=== PATIENT | male | born 1955 | race African-American/Black ===

== ENCOUNTER 2017-03-29 14:22 | Inpatient (IN) | payer MEDICAID ==
[~2017-03-29] VITALS: Ht 188 cm; Wt 93.0 kg
[2017-03-29 14:22] VITALS: BP_SYST 137
--- NOTE | 2017-03-29 14:22 | NUR ---
BROUGHT IN BY S AMBULANCE FROM [facility] AND PLACED IN BED #4, TRIAGED. REPORT GIVEN TO MARTIN
[2017-03-29] MEDS ORDERED: MORPHINE 4 MG/ML INJ. SYRINGE IVP ONE (14:30)
[2017-03-29] MEDS ORDERED: LIDOCAINE/EPI 1% 1:100000 20 ML VIAL INJ ONE (14:30)
[2017-03-29] MEDS ORDERED: NACL 0.9% 1,000 ML IV SCH (14:30)
[2017-03-29] MEDS ORDERED: ONDANSETRON HCL 4 MG/2 ML VIAL IVP ONE (14:30)
[2017-03-29] MEDS ORDERED: PIPERACILLIN/TAZO 3.38 GM in D5W 50 ML IV ONE (14:30)
--- NOTE | 2017-03-29 14:36 | NUR ---
ER at bedside examining patient.
--- NOTE | 2017-03-29 14:37 | NUR ---
Pt went to x ray in stable condition.
--- NOTE | 2017-03-29 15:20 | NUR ---
Pt is resting comfortably with no noted distress or discomfort
[2017-03-29 15:25] LABS: HEMATOCRIT 26.3 % (36-54); HEMOGLOBIN 8.4 g/dL (14.0-18.0); MEAN CORPUSCULAR HEMOGLOBIN 27 pg (27-31); MEAN CORPUSCULAR HGB CONC 32 % (32-36); MEAN CORPUSCULAR VOLUME 84 fL (79.0-98.0); PLATELET COUNT (AUTO) 568 K/uL (130-430); RED BLOOD CELL COUNT(AUTO) 3.14 MIL/uL (4.2-6.2); RED CELL DISTRIBUTION WIDTH 17.5 % (9.0-15.0); WHITE BLOOD COUNT (AUTO) 14.8 K/uL (4.8-10.8)
[2017-03-29 15:36] LABS: CALCIUM 12.2 mg/dL (8.4-11.0); CREATININE 1.91 mg/dL (0.55-1.30); INR 1.2 (0.80-1.20); POTASSIUM 4.1 mmol/L (3.5-5.1); PROTHROMBIN TIME 13.1 SECS (9.5-12.5)
[2017-03-29 15:52] LABS: ALBUMIN 2.3 g/dL (3.4-4.8); TOTAL BILIRUBIN 0.9 mg/dL (0.0-1.0); TOTAL PROTEIN, SERUM 9.4 g/dL (6.4-8.3); URIC ACID 5.6 mg/dL (2.4-7.0)
[2017-03-29] MEDS ORDERED: MORPHINE 4 MG/ML INJ. SYRINGE ONE (16:08)
[2017-03-29] MEDS ORDERED: DIPH-179 PO (16:10)
[2017-03-29] MEDS ORDERED: DILT60TA3 PO (16:10)
[2017-03-29] MEDS ORDERED: HYDR-2489 PO (16:10)
[2017-03-29] MEDS ORDERED: POTA20TA83 PO (16:10)
[2017-03-29] MEDS ORDERED: OXYC15TA88 PO (16:10)
[2017-03-29] MEDS ORDERED: ACET-2165 PO (16:10)
[2017-03-29] MEDS ORDERED: MAGN400O4 PO (16:10)
[2017-03-29] MEDS ORDERED: ALLO300T2 PO (16:10)
[2017-03-29] MEDS ORDERED: APIX5TAB PO (16:10)
[2017-03-29] MEDS ORDERED: FURO-149 PO (16:10)
[2017-03-29] MEDS ORDERED: FAMO20TA98 PO (16:10)
[2017-03-29] MEDS ORDERED: METO25TA6 PO (16:10)
[2017-03-29] MEDS ORDERED: ASPI-1063 PO (16:10)
[2017-03-29] MEDS ORDERED: DIGO125T79 PO (16:10)
[2017-03-29] MEDS ORDERED: LACTIN PO (16:10)
[2017-03-29 16:20] LABS: ATYPICAL LYMPHOCYTES % 0 % (0-0); BAND % (MANUAL) 1 % (0-6); BASOPHILS % (MANUAL) 0 % (0-2); EOSINOPHILS % (MANUAL) 3 % (0-7); LYMPHOCYTES % (MANUAL) 45 % (20-46); MONOCYTES % (MANUAL) 3 % (0-11)
[2017-03-29 16:39] VITALS: BP_SYST 126
--- NOTE | 2017-03-29 16:39 | NUR ---
ADMISSION: The patient, MEGHAN ESTEVES, 61 y/o, M admitted by NEPTALI MALONE DO, was given written information regarding hospital policies, unit procedures and contact persons.
--- NOTE | 2017-03-29 16:50 | NUR ---
Patient will be admitted to care of Dr Lisa. Admitted to med surg unit. Will go to room 114B. Belongings list completed. Summary report printed. Report will be given at bedside.
[2017-03-29] MEDS ORDERED: VANCOMYCIN HCL 1 GM/NS PREMIX 250 ML IV SCH (17:30)
--- NOTE | 2017-03-29 17:30 | NUR ---
CONSULTS ID CONSULT Spoke with Bam regarding request for consultation with Dr. Lemon ([phone]) for reason: sepsis. Dr. Orozco is currently welder setter electron beam machine. ORTHO CONSULT Spoke with Dr. Maria G brown regarding consult for reason: sepsis. Dr. Meyer is welder setter electron beam machine and transferred call to FELICITY Boland.
--- NOTE | 2017-03-29 17:30 | NUR ---
md seen by dr allred and told charge nurse does not see medical patient. dr luna was called and informed re th issue and stated will informed dr oh in am. will endorsed to night charged nurse about it.
--- NOTE | 2017-03-29 18:00 | NUR ---
rounds/initial notes report given by shannan jean nurse. awake alert but with periods of forgetfulness/confusion. ivf infusing well on the l hand. no infiltration noted. resp easy unlabored. no sob noted. noted r knee area to be swollen with a band aid oon it. no drainage noted.per patient er md attempted to aspirate but no drain was obtained. voiding using the urinal at bedside. bed in low position and side rails up and locked. call light within reached and instructed to call when needing assistance.
[2017-03-29] MEDS: NACL 0.9% 1,000 ML IV SCH (18:58)
--- NOTE | 2017-03-29 19:00 | NUR ---
closing notes iv abx was given as ordered. no acute distress noted. side rails up and locked and bed in low position.
[2017-03-29 19:45] VITALS: BP_SYST 155
--- NOTE | 2017-03-29 19:45 | NUR ---
initial note pt. received in bed, alert but forgetful. no s/s of sob or distress noted at this time. afebrile. complains of pain only when leg is being moved. right knee swelling noted. pt. does not want pain medication at this time. pt. refuses to be turned to assess condition of skin on his bottom. will attempt at a later time. from what can be seen, there does not appear to be any breakdown. iv acces noted to left hand. no redness or swelling noted to the site. iv antibiotics infusing well at this time as ordered. no adverse reactions are noted. pt. able to use the urinal. plan of care has been discussed, pt. verbalizes understanding. encouraged pt. to use the call light for any assistance. will continue to monitor for any changes. safety and fall precautions are in place, call light in reach. bed alarm on this pt. bed does not work, will move to another bed with a functioning alarm.
[2017-03-29 20:30] LABS: BILIRUBIN,URINE NEGATIVE (NEGATIVE); BLOOD, URINE 3+ (NEGATIVE); CLARITY/URINE SL HAZY (CLEAR); COLOR,URINE YELLOW (YELLOW); GLUCOSE,URINE NEGATIVE (NEGATIVE); KETONES,URINE NEGATIVE (NEGATIVE); LEUKOCYTE ESTERASE ,URINE NEGATIVE (NEGATIVE); NITRITE, URINE NEGATIVE (NEGATIVE); PH,URINE 6.5 (5.0-8.0); PROTEIN URINE 2+ (NEGATIVE); UROBILINOGEN,URINE 0.2 (0.2-1.0)
[2017-03-29 20:48] LABS: BACTERIA,URINE FEW /HPF (None Seen); RBC,URINE >100 /HPF (0-3)
[2017-03-29 20:49] LABS: FINE GRANULAR CASTS,URINE 0-10 /LPF (None Seen); MUCUS,URINE 1+ /LPF (None Seen); URINE AMORPHOUS URATE 1+ /HPF (None Seen)
[2017-03-29] MEDS ORDERED: DOCUSATE SODIUM 100 MG CAPSULE PO PRN (21:00)
[2017-03-29] MEDS ORDERED: POTASSIUM CHLORIDE 10 MEQ TAB.PRT.SR PO PRN (21:00)
[2017-03-29] MEDS ORDERED: ZOLPIDEM TARTRATE 5 MG TABLET PO PRN (21:00)
[2017-03-29] MEDS ORDERED: ONDANSETRON HCL 4 MG/2 ML VIAL IVP PRN (21:00)
[2017-03-29] MEDS ORDERED: LORazepam 2 MG/ML VIAL IVP PRN (21:00)
[2017-03-29] MEDS ORDERED: ACETAMINOPHEN 325 MG TABLET PO PRN (21:00)
[2017-03-29] MEDS ORDERED: MAGNESIUM SULFATE 50 ML IV PRN (21:00)
[2017-03-29] MEDS ORDERED: MORPHINE 2 MG/ML INJ. SYRINGE IVP PRN (21:00)
--- NOTE | 2017-03-29 21:00 | NUR ---
rounds pt. transferred to bed with a functioning alarm. pt stable. will continue to monitor.
[2017-03-29] MEDS: DILTIAZEM HCL 60 MG TABLET PO SCH (22:03)
[2017-03-29] MEDS: METOPROLOL TARTRATE 25 MG TABLET PO SCH (22:03)
--- NOTE | 2017-03-29 22:25 | NUR ---
rounds pt. resting in bed at this time. complains of pain to right knee when leg is assessed or moved. pt. requesting pain medication at this time. will administer as ordered. pm medications were given, no difficulties swallowing noted. pt. refuses to be turned in order to assess the condition of his skin. will continue to monitor the patient for any changes. safety and fall precautions are in place. call light in reach. bed alarm on.
[2017-03-30] VITALS (7 sets, daily range): BP systolic 112–143
--- NOTE | 2017-03-30 00:15 | NUR ---
rounds pt. resting in bed with eyes closed. chest rise and fall noted. no signs of distress. no facial grimacing indicating pain. iv fluids infusing well. will cont. to monitor for changes. safety and fall precautions in place, call light in reach, bed alarm on.
--- NOTE | 2017-03-30 02:14 | NUR ---
rounds pt. resting in bed with eyes closed, chest rise and fall noted. no s/s of sob or distress. no facial grimacing indicating pain. will continue to monitor for changes. safety and fall precautions in place. call light in reach.
--- NOTE | 2017-03-30 04:06 | NUR ---
rounds pt. sitting up in bed, no signs of acute distress noted. denies pain at this time. iv fluids infusing well. will continue to monitor for changes. safety and fall precautions in place. call light in reach.
[2017-03-30] MEDS: DILTIAZEM HCL 60 MG TABLET PO SCH ×3 (05:35→21:06)
--- NOTE | 2017-03-30 06:38 | NUR ---
CLOSING NOTE PT. RESTING IN BED QUIETLY. NO S/S OF SOB OR DISTRESS NOTED. PT. DENIES PAIN. IV FLUIDS CONT. TO INFUSE WELL. SCDS ARE ON BILATERALLY. ALL NECESSARY NEEDS WERE MET THROUGHOUT THE SHIFT, SAFETY AND FALL PRECAUTIONS WERE MAINTAINED. WILL ENDORSE CARE TO AM NURSE. CALL LIGHT IN REACH, BED ALARM ON.
--- NOTE | 2017-03-30 07:57 | NUR ---
Nutrition Update [place] Scale 15 noted. Pt admitted for R knee septic arthritis. Diet: regular BMI: 26.3 kg/m2 RD to follow per nutrition care standards.
[2017-03-30 09:05] LABS: CALCIUM 11.9 mg/dL (8.4-11.0); CREATININE 1.78 mg/dL (0.55-1.30); POTASSIUM 4.1 mmol/L (3.5-5.1)
[2017-03-30 09:42] LABS: HEMOGLOBIN 8.3 g/dL (14.0-18.0); MEAN CORPUSCULAR HEMOGLOBIN 27 pg (27-31); MEAN CORPUSCULAR HGB CONC 32 % (32-36); MEAN CORPUSCULAR VOLUME 84 fL (79.0-98.0); PLATELET COUNT (AUTO) 565 K/uL (130-430); RED CELL DISTRIBUTION WIDTH 17.4 % (9.0-15.0); WHITE BLOOD COUNT (AUTO) 14.3 K/uL (4.8-10.8)
[2017-03-30] MEDS: METOPROLOL TARTRATE 25 MG TABLET PO SCH ×2 (09:54→21:06)
[2017-03-30] MEDS: ASPIRIN 81 MG TABLET(ECOTRIN) PO SCH (09:54)
[2017-03-30] MEDS: DIGOXIN 0.125 MG TABLET PO SCH (09:55)
--- NOTE | 2017-03-30 09:55 | NUR ---
Routine Scheduled medications given per order. Patient stable with Dr. Lisa at bedside.
[2017-03-30 10:12] LABS: BASOPHILS % (MANUAL) 0 % (0-2); EOSINOPHILS % (MANUAL) 1 % (0-7); LYMPHOCYTES % (MANUAL) 28 % (20-46); MONOCYTES % (MANUAL) 5 % (0-11)
--- NOTE | 2017-03-30 10:27 | NUR ---
DC PLANNING: Contacted [facility] # [phone] per Maddy Honorio katie is responsible for inpt stay at [facility] with pending knee surgery consultation. She also provided Pend.Ref#[id number]. She requested faxing clinical review to veda Cordero fax#[phone], tel# [phone] once available. >> S/W veda Cordero [facility] ie, surgery fee and [facility] covers professional fees ie. consultation fees. >> Notified Yoly of the above and for her to possible process AUGUST with surgeon/dr. Fournier.
--- NOTE | 2017-03-30 13:25 | NUR ---
Routine Scheduled medication given per order. Patient stable at this time.
--- NOTE | 2017-03-30 16:45 | NUR ---
Routine Patient asleep. No distress noted at this time.
--- NOTE | 2017-03-30 20:00 | NUR ---
NOTES; Seen Pt in bed . A/A/O X2, forgetful. No s/s of sob or distress noted at this time. Vital signs stable, afebrile. Right knee swelling noted,small bandage dressing noted on the knee, dressing is clean,dry, and intact. Rt knee is warm to touch. Pedal pulses palpable. pt. refuses to be turned to assess condition of skin on his bottom. will attempt at a later time. iv acces noted to left hand. no redness or swelling noted to the site. Call light within reach. Instructed pt on the use of call light to call for any need to assist. Verbalizes understanding. will continue to monitor for any changes. safety and fall precautions are in place. Bed alarm, side rails up x3. Will continue to monitor.
--- NOTE | 2017-03-30 21:00 | NUR ---
NOTES; SCHEDULED PO MEDICATION ADMINISTERED. PT TOLERATED MEDS WELL.
[2017-03-30] MEDS: NACL 0.9% 1,000 ML IV SCH (21:13)
--- NOTE | 2017-03-30 22:30 | NUR ---
NOTES; APPEARED TO BE SLEEPING, EYES CLOSED. RESPIRATION EVEN AND UNLABORED. SAFETY MEASURES IN PROGRESS.
--- NOTE | 2017-03-31 | NUR ---
NOTES; APPEARED TO BE SLEEPING, EYES CLOSED. RESPIRATION EVEN AND UNLABORED. EASILY AROUSED. SAFETY MEASURES IN PROGRESS.
[2017-03-31 00:18] VITALS: BP_SYST 116
--- NOTE | 2017-03-31 02:00 | NUR ---
NOTES; TOTAL BED BATH GIVEN, LINEN CHANGED. PT REFUSED TO BE TURNED OR REPOSITIONED. EDUCATED PT ABOUT THE IMPORTANCE OF TURNING AND REPOSITIONING. PT VERBALIZED UNDERSTANDING. SAFETY MEASURES IN PROGRESS.
[2017-03-31 03:53] VITALS: BP_SYST 140
--- NOTE | 2017-03-31 04:00 | NUR ---
NOTES; APPEARED TO BE SLEEPING, EYES CLOSED. RESPIRATION EVEN AND UNLABORED. NO ACUTE DISTRESS NOTED. SAFETY MEASURES IN PROGRESS.
--- NOTE | 2017-03-31 06:01 | NUR ---
NOTES; APPEARED TO BE SLEEPING, EYES CLOSED. RESPIRATION EVEN AND UNLABORED. NO ACUTE DISTRESS NOTED. EASILY AROUSED. PT REFUSED TO BE REPOSITIONED. IMPORTANCE OF REPOSITIONING EDUCATION GIVEN TO PT. PT REFUSED. SAFETY MEASURES IN PROGRESS.
[2017-03-31] MEDS: DILTIAZEM HCL 60 MG TABLET PO SCH ×2 (06:28→15:49)
[2017-03-31] MEDS ORDERED: ACETAMINOPHEN 325 MG TABLET PO PRN (07:15)
[2017-03-31 08:23] LABS: HEMATOCRIT 26.2 % (36-54); HEMOGLOBIN 8.2 g/dL (14.0-18.0); MEAN CORPUSCULAR HEMOGLOBIN 26 pg (27-31); MEAN CORPUSCULAR HGB CONC 31 % (32-36); MEAN CORPUSCULAR VOLUME 85 fL (79.0-98.0); PLATELET COUNT (AUTO) 519 K/uL (130-430); RED CELL DISTRIBUTION WIDTH 17.2 % (9.0-15.0)
[2017-03-31 08:32] LABS: CALCIUM 11.1 mg/dL (8.4-11.0); CREATININE 1.6 mg/dL (0.55-1.30); POTASSIUM 3.7 mmol/L (3.5-5.1)
[2017-03-31 09:04] LABS: BASOPHILS % (MANUAL) 0 % (0-2); EOSINOPHILS % (MANUAL) 0 % (0-7); LYMPHOCYTES % (MANUAL) 30 % (20-46); MONOCYTES % (MANUAL) 5 % (0-11)
[2017-03-31] MEDS: ASPIRIN 81 MG TABLET(ECOTRIN) PO SCH (10:36)
[2017-03-31] MEDS: METOPROLOL TARTRATE 25 MG TABLET PO SCH (10:36)
[2017-03-31] MEDS: DIGOXIN 0.125 MG TABLET PO SCH (10:36)
[2017-03-31] MEDS: NACL 0.9% 1,000 ML IV SCH (10:37)
--- NOTE | 2017-03-31 10:38 | NUR ---
Discharge Planning SENIOR DATABASE ADMINISTRATOR received discharge back to [facility] SNF order. Faxed packet to [facility]. p [phone] f [phone]. Will follow up.
--- NOTE | 2017-03-31 10:40 | NUR ---
DR MALONE AT BEDSIDE
--- NOTE | 2017-03-31 10:41 | NUR ---
LATE ENTRY FOR 724 AM ROUNDS PT SITTING UP IN BED. A/O X3. IVF INFUSING WELL TO LH...RIGHT KNEE WITH MILD SWELLING AND ELEVATED ON PILLOW...DENIES PAIN AT THIS TIME...CALL LIGHT/PHONE W/IN REACH...WILL CONT TO MONITOR
--- NOTE | 2017-03-31 10:48 | NUR ---
ROUNDS PT STABLE, NO CHANGES...WILL CONT TO MONITOR
[2017-03-31 12:12] VITALS: BP_SYST 123
--- NOTE | 2017-03-31 13:00 | NUR ---
>> Informed pt. that he is being discharge back to [facility] this pm. The pt. agreed with POC.
--- NOTE | 2017-03-31 13:00 | NUR ---
ROUNDS PT STABLE...SITTING UP IN BED, VISITING WITH FAMILY...WILL CONT TO MONITR
--- NOTE | 2017-03-31 13:44 | NUR ---
Discharge Planning Patient is accepted back to [facility] [phone] room 119B. Spoke with Mabel ROSALES. Patient will be ready for transfer at 3:30pm. Phoned [facility] [phone] for ambulance transport via [facility]; spoke with freya Kate #[phone]. They will call back with an ETA. Packet placed in nurses' station.
--- NOTE | 2017-03-31 15:05 | NUR ---
ROUNDS PT STABLE...NO CHANGES...AWAITING TRANSFER BACK TO SNF
[2017-03-31 16:10] VITALS: BP_SYST 129
[2017-03-31 16:15] VITALS: BP_SYST 133
--- NOTE | 2017-03-31 16:21 | NUR ---
REPORT CALLED TO FELICITY SIMMONS AT [facility] [phone] PT TO GO TO ROOM 119B
--- NOTE | 2017-03-31 17:20 | NUR ---
PT TRANSFERRED Report given to FELICITY SIMMONS at [facility]. Transfer packet with Transfer Orders and Medication Reconciliation form given to EMT with report. Exitcare provided. [facility] ID band removed, replaced with ID band with pt's name and . IV catheter REMAINED IN PLACE FOR CONTINUED ANTIBIOTIC AT SNF. All belongings sent with patient. Patient left floor via gurney escorted by EMT in no distress.
== END 2017-03-31 17:20 | DRG 720 ==
LOC: SED 14:22 → SMU 16:16
PROVIDERS: ADMIT General Practice; ATTEND General Practice
DX: A41.9 Sepsis, unspecified organism (principal); N17.0 Acute kidney failure with tubular necrosis; F03.90 Unspecified dementia, unspecified severity, without behavioral disturbance, psychotic disturbance, mood disturbance, and anxiety; E44.0 Moderate protein-calorie malnutrition; M00.9 Pyogenic arthritis, unspecified; I48.91 Unspecified atrial fibrillation; E87.1 Hypo-osmolality and hyponatremia; I11.0 Hypertensive heart disease with heart failure; I50.9 Heart failure, unspecified; D47.3 Essential (hemorrhagic) thrombocythemia; D64.9 Anemia, unspecified; M17.0 Bilateral primary osteoarthritis of knee; D75.89 Other specified diseases of blood and blood-forming organs; K21.9 Gastro-esophageal reflux disease without esophagitis; M10.9 Gout, unspecified; Z88.8 Allergy status to other drugs, medicaments and biological substances; Z22.322 Carrier or suspected carrier of Methicillin resistant Staphylococcus aureus; Z79.82 Long term (current) use of aspirin; Z79.899 Other long term (current) drug therapy; Z79.01 Long term (current) use of anticoagulants; Z68.26 Body mass index [BMI] 26.0-26.9, adult
CPT/HCPCS: 36415; 73564; 80048; 80053; 81000-TC; 83605; 83735-TC; 84550-TC; 85007; 85027; 85610-TC; 85730-TC; 87040-TC; 87081; 87086; 96365; 96375; 99285; J2270; J2405; J2543; J3370; J7030; J7060

== ENCOUNTER 2017-04-28 13:35 | Inpatient (IN) | payer MEDICAID ==
[~2017-04-28] VITALS: Ht 188 cm; Wt 90.7 kg
[~2017-04-28 13:35] MED LIST: ACET-2165 PO; ALLO300T2 PO; APIX5TAB PO; ASPI-1063 PO; DIGO125T79 PO; DILT60TA3 PO; FAMO20TA98 PO; FURO-149 PO; HYDR-2489 PO; LACTIN PO; MAGN400O4 PO; METO25TA6 PO; POTA20TA83 PO
[2017-04-28 13:44] VITALS: BP_SYST 138
--- NOTE | 2017-04-28 13:49 | NUR ---
Placed in room 2 . Placed on direct sales professional, blood pressure machine and pulse oximeter. To gown for exam. Side rails up.Report given to Donna BLEVINS.
--- NOTE | 2017-04-28 14:00 | NUR ---
Patient is A & O x 4. Skin is warm, dry and intact. Patient is brought in by BLS from [facility]. Patient reports that he had a low Hemoglobin. Patient has chronic pain to right knee. Pain is 7/10. No distress noted at this time. No other complaints/injuries per patient or as noted. Will continue to monitor.
--- NOTE | 2017-04-28 14:52 | NUR ---
# 18 gauge angiocath placed to RAC. Use of asceptic technique. Opsite placed over site. Blood return noted. Blood for lab drawn from site. Flushed with 10 cc of normal saline. No evidence of infiltration noted. Patient tolerated well.
[2017-04-28 15:15] LABS: CALCIUM 9.4 mg/dL (8.4-11.0); CREATININE 2.38 mg/dL (0.55-1.30); HEMOGLOBIN 7.1 g/dL (14.0-18.0); MEAN CORPUSCULAR HEMOGLOBIN 28 pg (27-31); MEAN CORPUSCULAR HGB CONC 33 % (32-36); MEAN CORPUSCULAR VOLUME 86 fL (79.0-98.0); PLATELET COUNT (AUTO) 447 K/uL (130-430); RED BLOOD CELL COUNT(AUTO) 2.55 MIL/uL (4.2-6.2); RED CELL DISTRIBUTION WIDTH 17.7 % (9.0-15.0); WHITE BLOOD COUNT (AUTO) 12.3 K/uL (4.8-10.8)
[2017-04-28 15:20] LABS: ALBUMIN 2.3 g/dL (3.4-4.8); TOTAL BILIRUBIN 0.7 mg/dL (0.0-1.0); TOTAL PROTEIN, SERUM 9.1 g/dL (6.4-8.3)
[2017-04-28 15:25] LABS: INR 1.1 (0.80-1.20)
[2017-04-28 15:27] LABS: HEMATOCRIT 21.8 % (36-54)
--- NOTE | 2017-04-28 15:29 | NUR ---
Patient complains right knee pain 07/25. MD notified.
[2017-04-28 15:35] LABS: BILIRUBIN,URINE NEGATIVE (NEGATIVE); BLOOD, URINE 3+ (NEGATIVE); COLOR,URINE YELLOW (YELLOW); GLUCOSE,URINE NEGATIVE (NEGATIVE); KETONES,URINE NEGATIVE (NEGATIVE); LEUKOCYTE ESTERASE ,URINE NEGATIVE (NEGATIVE); NITRITE, URINE NEGATIVE (NEGATIVE); PH,URINE 5.5 (5.0-8.0); PROTEIN URINE 2+ (NEGATIVE); UROBILINOGEN,URINE 0.2 (0.2-1.0)
--- NOTE | 2017-04-28 15:40 | NUR ---
Dr. Carpenter at bedside.
[2017-04-28 15:43] LABS: CLARITY/URINE HAZY (CLEAR)
[2017-04-28] MEDS ORDERED: HYDROcodone/ACETAMIN 10-325 MG TAB PO ONE (15:45)
[2017-04-28] MEDS ORDERED: DILT60TA3 PO (15:46)
[2017-04-28] MEDS ORDERED: FAMO-129 PO (15:46)
[2017-04-28] MEDS ORDERED: ALLO300T2 PO (15:46)
[2017-04-28] MEDS ORDERED: METO25TA6 PO (15:46)
[2017-04-28] MEDS ORDERED: APIX5TAB PO (15:46)
[2017-04-28] MEDS ORDERED: DIGO125T79 PO (15:46)
[2017-04-28] MEDS ORDERED: ASPI-1063 PO (15:46)
[2017-04-28] MEDS ORDERED: FURO-149 PO (15:46)
--- NOTE | 2017-04-28 15:46 | NUR ---
Medication reconciliation completed with information provided by skilled nursing. Any prior medication reconciliation on file was reviewed and corrected.
[2017-04-28 15:56] LABS: BACTERIA,URINE FEW /HPF (None Seen); MUCUS,URINE None Seen /LPF (None Seen); RBC,URINE 50-80 /HPF (0-3); WBC,URINE 0-3 /HPF (0-3)
[2017-04-28 16:04] LABS: BAND % (MANUAL) 0 % (0-6); BASOPHILS % (MANUAL) 0 % (0-2); EOSINOPHILS % (MANUAL) 1 % (0-7); LYMPHOCYTES % (MANUAL) 16 % (20-46); MONOCYTES % (MANUAL) 3 % (0-11)
[2017-04-28] MEDS ORDERED: NACL 0.9% 1,000 ML IV ONE (16:15)
--- NOTE | 2017-04-28 17:32 | NUR ---
ADMISSION: The patient, MEGAHN ESTEVES, 61 y/o, M admitted by NEPTALI MALONE DO, was given written information regarding hospital policies, unit procedures and contact persons. .
--- NOTE | 2017-04-28 17:32 | NUR ---
Patient will be admitted to care of Dr. Lisa. Admitted to Med Surg unit. Will go to room 119 B. Belongings list completed. Summary report printed. Report will be given at bedside.
[2017-04-28 17:50] VITALS: BP_SYST 114
--- NOTE | 2017-04-28 18:00 | NUR ---
initial note pt assessed, alert and oriented, no s/s of acute distress or pain, vss, iv to rac intact and infusing fluids at ordered rate, pt aware and verbalized agreement for blood transfusion, pt oriented to room and use of call light, call light placed within reach, safety measures in place, call light within reach, will continue to monitor
--- NOTE | 2017-04-28 18:45 | NUR ---
dr luna called to clarify order for blood transfusion, per md order to is to transfuse 2 units prbcs now. will endorse to following shift
--- NOTE | 2017-04-28 18:58 | NUR ---
closing note pt siting up in bed, awake, stable, settled into room, iv fluids infusing, all needs attended to during shift, will give report to following shift.
[2017-04-28] MEDS ORDERED: MAGNESIUM SULFATE 50 ML IV PRN (19:45)
[2017-04-28] MEDS ORDERED: ONDANSETRON HCL 4 MG/2 ML VIAL IVP PRN (19:45)
[2017-04-28] MEDS ORDERED: LORazepam 2 MG/ML VIAL IVP PRN (19:45)
[2017-04-28] MEDS ORDERED: MILK OF MAGNESIA 30 ML UDC PO SCH (19:45)
[2017-04-28] MEDS ORDERED: POTASSIUM CHLORIDE 10 MEQ TAB.PRT.SR PO PRN (19:45)
[2017-04-28] MEDS ORDERED: MORPHINE 2 MG/ML INJ. SYRINGE IVP PRN (19:45)
[2017-04-28] MEDS ORDERED: DOCUSATE SODIUM 100 MG CAPSULE PO PRN (19:45)
[2017-04-28] MEDS ORDERED: ZOLPIDEM TARTRATE 5 MG TABLET PO PRN (19:45)
[2017-04-28] MEDS ORDERED: ACETAMINOPHEN 325 MG TABLET PO PRN (19:45)
[2017-04-28 19:55] VITALS: BP_SYST 106
--- NOTE | 2017-04-28 19:55 | NUR ---
NOTES; SEEN PT IN BED WATCHING TV. NO ACUTE DISTRESS NOTED. VITAL SIGNS STABLE, AFEBRILE. IV TO THE RT AC, GAUGE 20 WITH ORDERED IVF INFUSING WELL. PT DENIES ANY PAIN AT THIS TIME. INSTRUCTED PT ON THE USE OF CALL LIGHT. PT VERBALIZED AND DEMONSTRATED UNDERSTANDING. BED LOCKED AND IN LOW POSITION, BED ALARM ON. CALL LIGHT AND BEDSIDE TABLE WITHIN REACH.
[2017-04-28] MEDS: DILTIAZEM HCL 60 MG TABLET PO SCH (21:37)
--- NOTE | 2017-04-28 21:44 | NUR ---
NOTES; SCHEDULED PO MEDICATION ADMINISTERED. PT TOLERATED MEDICATION WELL.
--- NOTE | 2017-04-28 22:50 | NUR ---
BT INITIATION: Consent signed per patient agreeing to administration of blood. Blood has been type and crossmatched. Blood sent from blood bank. Information on unit of blood checked against patient wristband at bedside by two nurses. All information matches. Patient or responsible green party informed of potential complications associated with blood transfusion. Informed of possible transfusion reaction symptoms. Aware of need to notify nurse at once of itching, shortness of breath, flushing, feeling of impending doom, or other symptoms not previously present. Vital signs taken within 5 minutes prior to initiation of transfusion. RN will remain with patient for first 15 minutes of transfusion at which time vital signs will be re-assessed.
[2017-04-28] MEDS: HYDROcodone/ACETAMIN 10-325 MG TAB PO PRN (22:52)
--- NOTE | 2017-04-28 23:05 | NUR ---
15 AFTER START OF TRANSFUSION; 15 AFTER START OF TRANSFUSION, BP 111/80, HR 102, RESPIRATION 18, TEMPERATURE 98.7. NO TRANSFUSION REACTION NOTED.
[2017-04-28 23:24] VITALS: BP_SYST 111
--- NOTE | 2017-04-29 01:45 | NUR ---
NOTES; 1ST UNIT OF PRBC TRANSFUSION COMPLETED. BP 114/64, HR 91, RESP, 18, TEMP 98.2. NO TRANSFUSION REACTION NOTED. WILL CONTINUE TO MONITOR.
--- NOTE | 2017-04-29 02:30 | NUR ---
BT INITIATION: Consent signed per patient agreeing to administration of blood. Blood has been type and crossmatched. Blood sent from blood bank. Information on unit of blood checked against patient wristband at bedside by two nurses. All information matches. Patient or responsible constitution party informed of potential complications associated with blood transfusion. Informed of possible transfusion reaction symptoms. Aware of need to notify nurse at once of itching, shortness of breath, flushing, feeling of impending doom, or other symptoms not previously present. Vital signs taken within 5 minutes prior to initiation of transfusion. will remain with patient for first 15 minutes of transfusion at which time vital signs will be re-assessed. Addendum: 04/29/17 at 0704 by Miryam Lee LVN TIME 2ND UNIT OF PRBC WAS STARTED WAS 0330 NOT 0230
--- NOTE | 2017-04-29 03:45 | NUR ---
15 AFTER START OF TRANSFUSION; 15 AFTER START OF TRANSFUSION, BP 109/64, HR 80, RESPIRATION 18, TEMPERATURE 97.9. NO TRANSFUSION REACTION NOTED.
[2017-04-29] MEDS: DILTIAZEM HCL 60 MG TABLET PO SCH ×3 (06:24→22:20)
[2017-04-29] MEDS: HYDROcodone/ACETAMIN 10-325 MG TAB PO PRN ×3 (06:25→20:33)
--- NOTE | 2017-04-29 06:30 | NUR ---
NOTES; 2ND UNIT OF PRBC TRANSFUSION COMPLETED. BP 101/64, HR 79, RESP 20, TEMP 97.1, NO TRANSFUSION REACTION NOTED. WILL CONTINUE TO MONITOR.
--- NOTE | 2017-04-29 07:06 | NUR ---
NOTES; AWAKE, IN BED. NO ACUTE DISTRESS NOTED. MEDICATED WITH [place] 1TAB PO FOR RT 6/10 PAIN. ALL NEEDS ATTENDED. SAFETY MEASURES MAINTAINED.
[2017-04-29 08:00] VITALS: BP_SYST 103
--- NOTE | 2017-04-29 08:00 | NUR ---
RN Opening Note patient lying on bed , alert oriented x4. patient denies pain or discomfort. patient was assessed. will be passing his med at 0900
[2017-04-29 08:05] LABS: CALCIUM 9.1 mg/dL (8.4-11.0); CREATININE 2.15 mg/dL (0.55-1.30); POTASSIUM 4.2 mmol/L (3.5-5.1)
[2017-04-29 08:07] LABS: HEMATOCRIT 22.7 % (36-54); HEMOGLOBIN 7.5 g/dL (14.0-18.0); MEAN CORPUSCULAR HEMOGLOBIN 29 pg (27-31); MEAN CORPUSCULAR HGB CONC 33 % (32-36); PLATELET COUNT (AUTO) 396 K/uL (130-430); RED BLOOD CELL COUNT(AUTO) 2.58 MIL/uL (4.2-6.2); RED CELL DISTRIBUTION WIDTH 17.7 % (9.0-15.0); WHITE BLOOD COUNT (AUTO) 11.8 K/uL (4.8-10.8)
[2017-04-29 08:12] LABS: MEAN CORPUSCULAR VOLUME 87 fL (79.0-98.0)
[2017-04-29] MEDS: DIGOXIN 0.125 MG TABLET PO SCH (09:44)
[2017-04-29] MEDS: POTASSIUM CHLORIDE 20 MEQ TAB.PRT.SR PO SCH (09:44)
[2017-04-29] MEDS: ALLOPURINOL 300 MG TABLET (ZYLOPRIM) PO SCH (09:44)
[2017-04-29] MEDS: METOPROLOL TARTRATE 25 MG TABLET PO SCH (09:45)
[2017-04-29 09:53] LABS: HEMATOCRIT 23.7 % (36-54); HEMOGLOBIN 7.8 g/dL (14.0-18.0); MEAN CORPUSCULAR HEMOGLOBIN 29 pg (27-31); MEAN CORPUSCULAR HGB CONC 33 % (32-36); MEAN CORPUSCULAR VOLUME 88 fL (79.0-98.0); PLATELET COUNT (AUTO) 423 K/uL (130-430); RED BLOOD CELL COUNT(AUTO) 2.71 MIL/uL (4.2-6.2); RED CELL DISTRIBUTION WIDTH 17.9 % (9.0-15.0); WHITE BLOOD COUNT (AUTO) 11.8 K/uL (4.8-10.8)
--- NOTE | 2017-04-29 10:00 | NUR ---
RN Rounds patient lying on bed, patient hemoglobin level came back at 7.8 mg/dl , Dr. luna was notified with the result, he ordered Dr. ayala to have a GI Consult on the patient. and will send a stool for OB once a sample is available
--- NOTE | 2017-04-29 10:48 | NUR ---
PAGED PAGED PETRA THOMAS AT [phone] SPOKE WITH PETRA THOMAS.
--- NOTE | 2017-04-29 11:02 | NUR ---
CONSULTATION PAGED REASON FOR CONSULTATION:POSSIBLE GI BLEED WAS CONSULT CALLED?Y PERSON WHO WAS NOTIFIED:ZE CONSULTING PHYSICIAN:DORIS DAVIES (SHE[employer] GENERAL CLAIMS AGENT) EVENT MARKETING INTERN SPECIALTY:GI EVENT MARKETING INTERN PHONE NUMBER:[phone]
[2017-04-29 11:10] LABS: BASOPHILS % (MANUAL) 0 % (0-2); EOSINOPHILS % (MANUAL) 2 % (0-7); LYMPHOCYTES % (MANUAL) 22 % (20-46); METAMYELOCYTES % 0 % (0-0); MONOCYTES % (MANUAL) 3 % (0-11)
--- NOTE | 2017-04-29 11:24 | NUR ---
Nutrition Update [place] Scale 16 noted. Pt admitted for severe anemia. Diet: 2 gm Na BMI: 25.7 kg/m2 RD to follow per nutrition care standards.
--- NOTE | 2017-04-29 11:30 | NUR ---
P.T. NOTES PATIENT SEEN IN HIS BED AND ATTEMPTED TO DO P.T. EVAL BUT REFUSED STATING HE HAS NOT WALKED SINCE JANUARY OF THIS YEAR DUE TO INCREASED PAIN ON HIS (B) KNEES WITH (L) WORSE THAN (R). EXPLAINED THE PLAN OF CARE AND THE BENEFIT OF THE OUT OF BED ACTIVITIES BUT STILL REFUSED. HE ALSO WANTS TO KNOW WHO ORDERED THE P.T. EVAL. HIS NURSE WAS MADE AWARE WHO WILL TALK TO HIM ON THIS. RIVER TESTER WAS PRESENT WELL WHEN HE REFUSED IN SPITE OF SEVERAL ENCOURAGEMENTS GIVEN. PLAN: WE'LL ATTEMPT AGAIN ON MONDAY IF HE REMAINS IN THIS HOSPITAL. (PVE)
--- NOTE | 2017-04-29 12:00 | NUR ---
RN Rounds patient was helped to reposition himself on bed. new eliud was replaced on his bed, patient denies pain or discomfort
[2017-04-29 12:14] LABS: BASOPHILS % (MANUAL) 0 % (0-2); EOSINOPHILS % (MANUAL) 4 % (0-7); LYMPHOCYTES % (MANUAL) 22 % (20-46); METAMYELOCYTES % 0 % (0-0); MONOCYTES % (MANUAL) 3 % (0-11)
[2017-04-29 12:41] VITALS: BP_SYST 125
--- NOTE | 2017-04-29 14:00 | NUR ---
RN Notes patient lying on bed watching movies. No issue
[2017-04-29 16:46] VITALS: BP_SYST 113
--- NOTE | 2017-04-29 17:00 | NUR ---
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 Dr. luna was called and bactroban nasal oint was ordered, patient was put on contact isolation. will follow up
--- NOTE | 2017-04-29 17:07 | NUR ---
PAGED PAGED PETRA THOMAS AT [phone] SPOKE WITH PETRA THOMAS.
--- NOTE | 2017-04-29 17:47 | NUR ---
MD KELLER PAGESHELLIE ADAMS AT [phone] SPOKE WITH TANIKA.
--- NOTE | 2017-04-29 18:00 | NUR ---
RN Closing note patient lying on bed eating dinner. patient was taught about MRSA in Nares and the contact precautions. patient denies pain or discomfort. will endorse to next shift
[2017-04-29 20:00] VITALS: BP_SYST 124
--- NOTE | 2017-04-29 20:00 | NUR ---
Initial PM Note Pt is fully AAO x4. Speech is clear and pt is able to make his needs known. IVF of NS is infusing well in RAC at 80ml/hr without any signs of infiltration. Fall and safety precautions are in place.
--- NOTE | 2017-04-29 20:33 | NUR ---
Pain Medication [place] 10/325mg 1 tablet was given po for c/o Rt knee pain with relief.
[2017-04-29] MEDS: MUPIROCIN NASAL 2% OINT. 1 GM NS SCH (21:00)
--- NOTE | 2017-04-29 21:30 | NUR ---
Bactroban Ointment Bactroban ointment not started tonight. Supervisor Coal Handling stated Bactroban ointment is not stocked for after hours.
--- NOTE | 2017-04-29 21:30 | NUR ---
IV Restart IV site in RAC infiltrated and Angiocath was removed intact. New IV line was restarted in [facility] with Angiocath 22g.
--- NOTE | 2017-04-29 23:30 | NUR ---
Rounds Pt is resting quietly in bed and watching TV. No c/o discomfort. IVF is infusing well in RAC.
[2017-04-30 00:26] VITALS: BP_SYST 126
[2017-04-30] MEDS: HYDROcodone/ACETAMIN 10-325 MG TAB PO PRN ×4 (02:33→22:58)
--- NOTE | 2017-04-30 02:33 | NUR ---
Pain Medication [place] 10/325mg 1 tablet was given po for c/o Rt knee pain with relief.
[2017-04-30 03:38] VITALS: BP_SYST 122
--- NOTE | 2017-04-30 05:00 | NUR ---
Rounds Pt is sleeping without any distress noted. Call light is with pt and bed alarm is on.
[2017-04-30] MEDS: DILTIAZEM HCL 60 MG TABLET PO SCH ×3 (05:42→21:16)
--- NOTE | 2017-04-30 06:59 | NUR ---
Closing Note Pt is resting comfortably in bed. All pt's needs were attended to. No fall or injury noted this shift. Will endorse to day shift nurse.
[2017-04-30 07:49] VITALS: BP_SYST 115
[2017-04-30 07:50] LABS: HEMATOCRIT 23.7 % (36-54); HEMOGLOBIN 7.8 g/dL (14.0-18.0); MEAN CORPUSCULAR HEMOGLOBIN 29 pg (27-31); MEAN CORPUSCULAR HGB CONC 33 % (32-36); MEAN CORPUSCULAR VOLUME 88 fL (79.0-98.0); PLATELET COUNT (AUTO) 416 K/uL (130-430); RED BLOOD CELL COUNT(AUTO) 2.71 MIL/uL (4.2-6.2); RED CELL DISTRIBUTION WIDTH 18.2 % (9.0-15.0); WHITE BLOOD COUNT (AUTO) 13.1 K/uL (4.8-10.8)
--- NOTE | 2017-04-30 07:51 | NUR ---
Initial note Pt is fully AAO x4. no sine of SOB or distress noted at this time, Speech is clear and pt is able to make his needs known. IVF of NS is infusing well in RAC at 80ml/hr without any signs of infiltration. Fall and safety precautions are in place, we will continue monitoring.
[2017-04-30] MEDS ORDERED: BISACODYL 5 MG TABLET.DR (DULCOLAX) PO ONE (08:15)
[2017-04-30] MEDS: ALLOPURINOL 300 MG TABLET (ZYLOPRIM) PO SCH (08:52)
[2017-04-30] MEDS: DIGOXIN 0.125 MG TABLET PO SCH (08:53)
[2017-04-30] MEDS: POTASSIUM CHLORIDE 20 MEQ TAB.PRT.SR PO SCH (08:53)
[2017-04-30] MEDS: METOPROLOL TARTRATE 25 MG TABLET PO SCH (08:54)
[2017-04-30] MEDS: NACL 0.9% 1,000 ML IV SCH (08:57)
[2017-04-30 09:33] LABS: BAND % (MANUAL) 3 % (0-6)
[2017-04-30] MEDS: MUPIROCIN NASAL 2% OINT. 1 GM NS SCH ×2 (09:33→21:16)
[2017-04-30 09:34] LABS: ATYPICAL LYMPHOCYTES % 0 % (0-0); BASOPHILS % (MANUAL) 0 % (0-2); EOSINOPHILS % (MANUAL) 3 % (0-7); LYMPHOCYTES % (MANUAL) 30 % (20-46); MONOCYTES % (MANUAL) 3 % (0-11)
--- NOTE | 2017-04-30 10:00 | NUR ---
round pt on bes alert,ox4, no sine of bedding,no sob noted at this time we will continue monitoring.
--- NOTE | 2017-04-30 12:00 | NUR ---
round pt on bed no sob, bleeding,noted at this time we will continue monitoring.
[2017-04-30 12:35] VITALS: BP_SYST 117
--- NOTE | 2017-04-30 16:00 | NUR ---
round pt on bed all need met we will continue monitoring.
[2017-04-30 17:49] VITALS: BP_SYST 123
[2017-04-30 20:00] VITALS: BP_SYST 112
--- NOTE | 2017-04-30 20:00 | NUR ---
Initial PM Note Pt was received lying in bed fully AAO x4. Speech is clear and pt is able to make his needs known. No c/o pain or discomfort. IVF of NS is infusing well in RAC at 80ml/hr without any signs of infiltration. Fall, Contact Isolation for MRSA of Nares and Safety precautions are in place.
--- NOTE | 2017-04-30 22:58 | NUR ---
Pain Medication [place] 10/325mg 1 tablet was given po for c/o Rt knee pain with relief.
[2017-05-01] VITALS: BP_SYST 118
--- NOTE | 2017-05-01 02:00 | NUR ---
Rounds Pt is resting quietly in bed and watching TV. No c/o pain or discomfort. IVF is infusing well in RAC.
[2017-05-01 04:00] VITALS: BP_SYST 121
[2017-05-01] MEDS: NACL 0.9% 1,000 ML IV SCH ×2 (04:11→21:29)
--- NOTE | 2017-05-01 05:00 | NUR ---
Rounds Pt is sleeping without any distress noted. Call light is with pt and bed alarm is on.
[2017-05-01] MEDS: DILTIAZEM HCL 60 MG TABLET PO SCH ×3 (05:56→21:28)
[2017-05-01 06:53] LABS: HEMATOCRIT 23.5 % (36-54); HEMOGLOBIN 7.7 g/dL (14.0-18.0); MEAN CORPUSCULAR HEMOGLOBIN 29 pg (27-31); MEAN CORPUSCULAR HGB CONC 33 % (32-36); MEAN CORPUSCULAR VOLUME 88 fL (79.0-98.0); PLATELET COUNT (AUTO) 453 K/uL (130-430); RED BLOOD CELL COUNT(AUTO) 2.68 MIL/uL (4.2-6.2); RED CELL DISTRIBUTION WIDTH 18.7 % (9.0-15.0); WHITE BLOOD COUNT (AUTO) 13.8 K/uL (4.8-10.8)
--- NOTE | 2017-05-01 07:30 | NUR ---
OPENING NOTE: PT RESTING IN BED, AWAKE AND ALERT. NO ACUTE SIGNS OF RESP DISTRESS, NO SOB. SKIN WARM DRY AND COLOR NORMAL FOR ETHNICITY. IV INTACT AND PATENT, NO REDNESS/SWELLING/PAIN. BED AT LOWEST POSITION, CALL LIGHT IN REACH, BED ALARM ON.
[2017-05-01 08:00] VITALS: BP_SYST 125
[2017-05-01 09:20] LABS: ATYPICAL LYMPHOCYTES % 0 % (0-0); BAND % (MANUAL) 0 % (0-6); BASOPHILS % (MANUAL) 0 % (0-2); EOSINOPHILS % (MANUAL) 3 % (0-7); LYMPHOCYTES % (MANUAL) 29 % (20-46); MONOCYTES % (MANUAL) 5 % (0-11)
[2017-05-01] MEDS ORDERED: MILK OF MAGNESIA 30 ML UDC PO ONE (09:30)
[2017-05-01] MEDS: POTASSIUM CHLORIDE 20 MEQ TAB.PRT.SR PO SCH (09:58)
[2017-05-01] MEDS: ALLOPURINOL 300 MG TABLET (ZYLOPRIM) PO SCH (09:58)
[2017-05-01] MEDS: METOPROLOL TARTRATE 25 MG TABLET PO SCH (09:59)
[2017-05-01] MEDS: DIGOXIN 0.125 MG TABLET PO SCH (09:59)
[2017-05-01] MEDS: MUPIROCIN NASAL 2% OINT. 1 GM NS SCH ×2 (10:00→21:29)
--- NOTE | 2017-05-01 10:00 | NUR ---
ROUNDING: AM MEDS GIVEN PER MD ORDERS. PT TOLERATED WELL. NO ACUTE SIGNS OF RESP DISTRESS, NO SOB. SKIN COLOR NORMAL FOR ETHNICITY. DENIES DIZZINESS/LIGHTHEADED AND FATIGUE. BED AT LOWEST POSITION, CALL LIGHT IN REACH, BED ALARM ON.
[2017-05-01] MEDS: HYDROcodone/ACETAMIN 10-325 MG TAB PO PRN ×2 (10:19→21:35)
--- NOTE | 2017-05-01 12:00 | NUR ---
ROUNDING: PT RESTING IN BED, SEMI FOWLERS. NO ACUTE SIGNS OF RESP DISTRESS, NO SOB. IV INTACT AND PATENT, NO REDNESS/SWELLING/PAIN. BED AT LOWEST POSITION, CALL LIGHT IN REACH, BED ALARM ON.
[2017-05-01 12:21] VITALS: BP_SYST 114
--- NOTE | 2017-05-01 14:15 | NUR ---
PT NOTE 1400 MEDICAL CHART REVIEWED. Pt WAS CLEARED FOR PT PER RN. Pt WAS SEEN ASLEEP BUT EASILY ROUSABLE TO VERBAL STIMULI. Pt REFUSED PHYSICAL THERAPY STATING THAT HE CANNOT STAND AND HAS BEEN INDEP WITH TRANSFERS BED<->W/C AND THAT HE DOES HIS LEG EXERCISES IN BED. Pt WAS EDUCATED ON BENEFITS OF PT BUT STILL REFUSED. DC PT ORDER DUE TO Pt KEPT REFUSING TO PARTICIPATE WITH EVAL. RN NOTIFIED. PVE(1)
--- NOTE | 2017-05-01 15:12 | NUR ---
ROUNDING: PT RESTING COMFORTABLY. DENIES DIZZINESS/LIGHTHEADED. SKIN COLOR NORMAL FOR ETHNICITY. NO ACUTE SIGNS OF RESP DISTRESS. NO SOB. RE-ENFORCED TO CALL PRIOR TO HAVING BOWEL MOVEMENT FOR SAMPLE TEST, PT VERBALIZED UNDERSTANDING. IV INTACT AND PATENT, NO REDNESS/SWELLING/PAIN. BED AT LOWEST POSITION, CALL LIGHT IN REACH, BED ALARM ON.
[2017-05-01 16:00] VITALS: BP_SYST 109
--- NOTE | 2017-05-01 16:30 | NUR ---
PAGED DR. YOUNG: AWAITING CALL BACK
--- NOTE | 2017-05-01 17:28 | NUR ---
PAGED PAGED GI DOCTOR SPOKE WITH AILEEN AT [phone].
--- NOTE | 2017-05-01 17:33 | NUR ---
DR. BOWIE CALLED BACK: DR. BOWIE CALLED BACK (COVERING FOR DR. YOUNG). DR. BOWIE AWARE THAT HIDA SCAN COULD NOT BE DONE TODAY BUT WILL BE DONE TOMORROW. DR. BOIWE STATED "OKAY, THATS FINE".
--- NOTE | 2017-05-01 18:22 | NUR ---
DR. YOUNG CALLED BACK: DR. YOUNG CALLED BACK AND HE IS AWAIT THAT HIDA SCAN COULD NOT BE DONE TODAY BUT THEY WILL DO IT TOMORROW. DR. YOUNG SAID "OKAY, THATS FINE"
[2017-05-01 19:40] VITALS: BP_SYST 140
--- NOTE | 2017-05-01 19:45 | NUR ---
Initial Notes Pt is A/Ox4, pleasant and cooperative. Pt denies any pain or sob at this time. IV noted to have infiltrated, will attempt to start new one. Plan of care discussed with pt, pt verbalized understanding. Pt aware that he will be NPO after midnight for planned HIDA scan for tomorrow in the am, pt aware and stated understanding. Pt noted to use his urinal without difficulty. Bilateral scd's in place for dvt prophylaxis. Pt is on contact isolation for MRSA of the nares, isolation precautions maintained. VSS. Safety measures in place, side rails up x3 with bed in lowest, locked position, bed alarm on at all times, pt educated occupational therapy manager light use and correct back demonstration noted. All needs met at this time. Call light in hand. Will continue to monitor.
--- NOTE | 2017-05-01 20:02 | NUR ---
CLOSING NOTE: PT RESTING IN BED. NO ACUTE SIGNS OF RESP DISTRESS, NO SOB. SKIN WARM DRY AND COLOR NORMAL FOR ETHNICITY. PT C/O PAIN TO IV SITE. INFUSION STOPPED, ELEVATED RIGHT ARM AND APPLIED WARM COMPRESS. ENDORSE TO FELICITY CHAPARRO THAT PT NEEDS A NEW IV, RN SAID "I WILL TELL AN NURSE". BED AT LOWEST POSITION, CALL LIGHT IN REACH, BED ALARM ON, SIDE RAILX3. ENDORSE PLAN OF CARE TO FELICITY CHAPARRO.
--- NOTE | 2017-05-01 21:35 | NUR ---
Pain Management/Scheduled meds/bed bath All scheduled medications given as ordered. Pt c/o bilateral knee pain 03/25, pt medicated with [place] 10-325mg 1 tab for moderate pain as ordered. DIRT SHOVELER at bedside, pt is going to be given bed bath at this time. All needs met. Call light in hand. Will continue to monitor.
--- NOTE | 2017-05-01 22:40 | NUR ---
New IV site New IV site started to RFA #22g on first attempt with good blood return, and flushed well with 10cc of NS. Pt tolerated procedure well. Pillow placed under right arm for comfort. Pt states relief of pain to bilateral knees. Call light in hand. All needs met at this time. Will continue to monitor.
--- NOTE | 2017-05-02 01:00 | NUR ---
Rounds Pt is sleeping comfortably in bed at this time. No acute distress or sob noted. Call light in hand. Will continue to monitor.
--- NOTE | 2017-05-02 03:53 | NUR ---
Rounds Pt is sleeping comfortably at this time. No acute distress or sob noted. All needs met. Call light in hand. Will continue to monitor.
[2017-05-02 03:59] VITALS: BP_SYST 142
[2017-05-02 04:00] VITALS: BP_SYST 136
--- NOTE | 2017-05-02 05:33 | NUR ---
Spoke with Evette from Radiology Spoke with Evette to confirm order for HIDA scan. Per Evette she will call Veronica from Nuclear med to notify.
[2017-05-02] MEDS: DILTIAZEM HCL 60 MG TABLET PO SCH ×2 (05:49→15:20)
--- NOTE | 2017-05-02 06:27 | NUR ---
Closing Notes Pt kept NPO after midnight for planned HIDA this am. Pt given information regarding HIDA scan test, and agreed with test. Consent signed, and filed in chart. IV intact. VSS. All needs met throughout shift. Will endorse care to am nurse. Call light in hand. Will continue to monitor.
[2017-05-02 07:15] LABS: HEMATOCRIT 24.4 % (36-54); HEMOGLOBIN 8.1 g/dL (14.0-18.0); MEAN CORPUSCULAR HEMOGLOBIN 29 pg (27-31); MEAN CORPUSCULAR HGB CONC 33 % (32-36); MEAN CORPUSCULAR VOLUME 87 fL (79.0-98.0); PLATELET COUNT (AUTO) 451 K/uL (130-430); RED CELL DISTRIBUTION WIDTH 18.6 % (9.0-15.0); WHITE BLOOD COUNT (AUTO) 11.6 K/uL (4.8-10.8)
[2017-05-02 08:00] VITALS: BP_SYST 144
--- NOTE | 2017-05-02 08:00 | NUR ---
RN OPENING NOTES Patient lying on bed, NPO for Hida scan, patient was assessed, vital signs are stable. will hold his med for the NPO condition for HIDA scan
[2017-05-02 08:55] LABS: ATYPICAL LYMPHOCYTES % 0 % (0-0); BAND % (MANUAL) 0 % (0-6); LYMPHOCYTES % (MANUAL) 30 % (20-46)
[2017-05-02 08:56] LABS: BASOPHILS % (MANUAL) 0 % (0-2); EOSINOPHILS % (MANUAL) 5 % (0-7); MONOCYTES % (MANUAL) 5 % (0-11)
[2017-05-02] MEDS: DIGOXIN 0.125 MG TABLET PO SCH (09:32)
[2017-05-02] MEDS: ALLOPURINOL 300 MG TABLET (ZYLOPRIM) PO SCH (09:32)
[2017-05-02] MEDS: METOPROLOL TARTRATE 25 MG TABLET PO SCH (09:32)
[2017-05-02] MEDS: HYDROcodone/ACETAMIN 10-325 MG TAB PO PRN (09:33)
[2017-05-02] MEDS: POTASSIUM CHLORIDE 20 MEQ TAB.PRT.SR PO SCH (09:33)
[2017-05-02] MEDS: MUPIROCIN NASAL 2% OINT. 1 GM NS SCH (09:44)
--- NOTE | 2017-05-02 10:00 | NUR ---
RN ROUNDS PATIENT LYING ON BED, REFUSED HIS HIDA SCAN. DR. MALONE WAS INFORMED. PATIENT WILL BE D/C BACK TO [facility] AND HIDA SCAN TO BE ON OUTPATIENT BASIS
--- NOTE | 2017-05-02 10:09 | NUR ---
DISCHARGE PLANNING DC order back to SNF. Faxed SNF referral to [facility] [phone]. Will follow up. Addendum: 05/02/17 at 1542 by Sarah MARK patient assigned to room 115B RN to report [phone]. Called insurance KAPIL Bah [phone] left voice message requesting return call back with contracted ambulance. Addendum: 05/02/17 at 1550 by Sarah MARK [facility] [phone] spoke with Gita curran [facility] transport picker tender helper at 5pm Ref#[id number]. Placed transportation packet in nurses station. FELICITY Meadows made aware. Addendum: 05/02/17 at 1559 by Sarah MARK Received call from [place] who stated transport will be here at 6pm.
[2017-05-02 12:00] VITALS: BP_SYST 131
--- NOTE | 2017-05-02 12:25 | NUR ---
DC PLANNING Order to dc back to SNF. Spoke w pt @ bedside, agreeable w transfer back to [facility].
--- NOTE | 2017-05-02 12:35 | NUR ---
RN ROUNDS PATIENT LYING ON BED, HAS PAIN, PATIENT WAS GIVEN HIS IV MORPHINE, PATIENT PAIN IMPROVED IMMEDIATELY. PATIENT WILL BE TRANSFERED BACK TO [facility], BUT DR. YOUNG WROTE AN ORDER FOR HIDA SCAN IN AM IN [place]. WILL TRY TO CONTACT DR. YOUNG TO LET HIM KNOW PATIENT WILL LEAVE AND DO HIDA SCAN ON AN OUTPATIENT BASIS PER DR. MALONE PATIENT DENIES PAIN OR DISCOMFORT.
[2017-05-02] MEDS: NACL 0.9% 1,000 ML IV SCH (12:41)
--- NOTE | 2017-05-02 14:50 | NUR ---
RN ROUNDS PATIENT LYING ON BED ALERT ORIENTED , DENIES PAIN. DR. DO CALLED BACK AND AGREED TO DISCHARGE THE PATIENT BACK TO SNF WITH HIDA TO BE DONE AN OUT PATIENT.
--- NOTE | 2017-05-02 15:58 | NUR ---
RN ROUNDS PATIENT LYING ON BED DENYING PAIN OR DISCOMFORT. A REPORT WILL BE GIVEN TO [facility] IN ANTICIPATION OF PATIENT TRANSFER BY 1700 TODAY
[2017-05-02 17:19] VITALS: BP_SYST 129
[2017-05-02 18:03] VITALS: BP_SYST 131
--- NOTE | 2017-05-02 18:30 | NUR ---
RN NOTES PATIENT LYING ON BED DENIES PAIN OR DISCOMFORT. THE AMBULANCE CAME TO TRANSFER THE PATIENT TO [facility] TRANSFER PAPERS WERE GIVEN TO THEM, WILL SIGN OFF THE PATIENT CARE
== END 2017-05-02 18:28 | DRG 253 ==
LOC: SED 13:35 → SMU 16:51
PROVIDERS: ADMIT General Practice; ATTEND General Practice
PROC: 30233N1 Transfusion of Nonautologous Red Blood Cells into Peripheral Vein, Percutaneous Approach (ICD-10-PCS; principal; 2017-04-28)
DX: K92.2 Gastrointestinal hemorrhage, unspecified (principal); N17.0 Acute kidney failure with tubular necrosis; E43 Unspecified severe protein-calorie malnutrition; R65.10 Systemic inflammatory response syndrome (SIRS) of non-infectious origin without acute organ dysfunction; I48.91 Unspecified atrial fibrillation; I10 Essential (primary) hypertension; D64.9 Anemia, unspecified; K80.80 Other cholelithiasis without obstruction; M17.0 Bilateral primary osteoarthritis of knee; D72.829 Elevated white blood cell count, unspecified; G89.29 Other chronic pain; I25.10 Atherosclerotic heart disease of native coronary artery without angina pectoris; M10.9 Gout, unspecified; Z88.8 Allergy status to other drugs, medicaments and biological substances; Z79.899 Other long term (current) drug therapy; Z79.01 Long term (current) use of anticoagulants; Z79.82 Long term (current) use of aspirin; Z53.29 Procedure and treatment not carried out because of patient's decision for other reasons
CPT/HCPCS: 36415; 71010; 80048; 80053; 81000-TC; 82272; 83735-TC; 85007; 85027; 85610-TC; 85730-TC; 86886; 86900; 86901; 86920; 87081; 93005; 96360; 99285; J2270; J7030; P9021

== ENCOUNTER 2017-05-15 23:24 | Inpatient (IN) | payer MEDICAID ==
[~2017-05-15] VITALS: Ht 188 cm; Wt 92.1 kg
[~2017-05-15 23:24] MED LIST changes: +FAMO-129 PO
[2017-05-15 23:30] VITALS: BP_SYST 122
[2017-05-16] MEDS ORDERED: NACL 0.9% 1,000 ML IV ONE (00:08)
[2017-05-16 01:11] LABS: HEMATOCRIT 22.7 % (36-54); HEMOGLOBIN 7.5 g/dL (14.0-18.0); MEAN CORPUSCULAR HEMOGLOBIN 28 pg (27-31); MEAN CORPUSCULAR HGB CONC 33 % (32-36); MEAN CORPUSCULAR VOLUME 86 fL (79.0-98.0); PLATELET COUNT (AUTO) 429 K/uL (130-430); RED BLOOD CELL COUNT(AUTO) 2.65 MIL/uL (4.2-6.2); WHITE BLOOD COUNT (AUTO) 13.5 K/uL (4.8-10.8)
[2017-05-16 01:20] LABS: BILIRUBIN,URINE NEGATIVE (NEGATIVE); BLOOD, URINE 3+ (NEGATIVE); COLOR,URINE YELLOW (YELLOW); GLUCOSE,URINE NEGATIVE (NEGATIVE); KETONES,URINE NEGATIVE (NEGATIVE); LEUKOCYTE ESTERASE ,URINE NEGATIVE (NEGATIVE); NITRITE, URINE NEGATIVE (NEGATIVE); PROTEIN URINE 2+ (NEGATIVE); UROBILINOGEN,URINE 0.2 (0.2-1.0)
[2017-05-16 01:23] LABS: CALCIUM 9.2 mg/dL (8.4-11.0); CREATININE 1.75 mg/dL (0.55-1.30); POTASSIUM 3.9 mmol/L (3.5-5.1)
[2017-05-16 01:27] LABS: INR 1.2 (0.80-1.20); PROTHROMBIN TIME 12.5 SECS (9.5-12.5)
[2017-05-16 01:28] LABS: ALBUMIN 2.4 g/dL (3.4-4.8); TOTAL BILIRUBIN 0.7 mg/dL (0.0-1.0); TOTAL PROTEIN, SERUM 8.3 g/dL (6.4-8.3)
[2017-05-16 01:34] LABS: CLARITY/URINE HAZY (CLEAR)
[2017-05-16 01:38] LABS: BACTERIA,URINE FEW /HPF (None Seen); RBC,URINE >100 /HPF (0-3)
[2017-05-16 01:39] LABS: MUCUS,URINE None Seen /LPF (None Seen)
[2017-05-16 01:41] LABS: BASOPHILS % (MANUAL) 0 % (0-2); EOSINOPHILS % (MANUAL) 4 % (0-7); LYMPHOCYTES % (MANUAL) 29 % (20-46); MONOCYTES % (MANUAL) 7 % (0-11)
[2017-05-16] MEDS ORDERED: KETOROLAC TROMETHAMINE 30 MG VIAL IVP ONE (02:30)
[2017-05-16] MEDS ORDERED: ONDANSETRON HCL 4 MG/2 ML VIAL IVP PRN (02:45)
[2017-05-16] MEDS ORDERED: ACETAMINOPHEN 325 MG TABLET PO ONE ×2 (02:45→03:30)
[2017-05-16] MEDS ORDERED: MORPHINE 4 MG/ML INJ. SYRINGE IVP PRN (02:45)
[2017-05-16] MEDS ORDERED: L.RH1CAP PO (03:03)
[2017-05-16] MEDS ORDERED: ASCO500T20 PO (03:03)
[2017-05-16] MEDS ORDERED: MULT PO (03:03)
[2017-05-16 03:25] VITALS: BP_SYST 151
[2017-05-16] MEDS ORDERED: HYDROcodone/ACETAMIN 10-325 MG TAB PO PRN (03:45)
[2017-05-16] MEDS ORDERED: FUROSEMIDE 40 MG/4 ML VIAL IVP ONE (04:00)
[2017-05-16] MEDS: HYDROcodone/ACETAMIN 10-325 MG TAB PO PRN ×3 (04:05→18:06)
[2017-05-16] MEDS: cefTRIAXone 1 GM IVPB PREMIX 50 ML IV SCH (04:09)
[2017-05-16] MEDS ORDERED: cefTRIAXone 1 GM IVPB PREMIX 50 ML IV ONE (04:15)
[2017-05-16 04:34] VITALS: BP_SYST 132
[2017-05-16 08:37] VITALS: BP_SYST 152
[2017-05-16] MEDS ORDERED: MILK OF MAGNESIA 30 ML UDC PO PRN (09:15)
[2017-05-16] MEDS ORDERED: ASPIRIN 81 MG TABLET(ECOTRIN) PO ONE (09:45)
[2017-05-16] MEDS ORDERED: DILTIAZEM HCL 60 MG TABLET PO ONE (09:45)
[2017-05-16] MEDS ORDERED: DIGOXIN 0.125 MG TABLET PO ONE (09:45)
[2017-05-16] MEDS ORDERED: METOPROLOL TARTRATE 25 MG TABLET PO ONE (10:00)
[2017-05-16] MEDS ORDERED: POTASSIUM CHLORIDE 20 MEQ TAB.PRT.SR PO ONE (10:00)
[2017-05-16] MEDS ORDERED: FAMOTIDINE 20 MG TABLET PO ONE (10:00)
[2017-05-16] MEDS ORDERED: MULTIVITAMINS TAB 1 TABLET PO ONE (10:00)
[2017-05-16] MEDS ORDERED: FUROSEMIDE 40 MG TABLET PO ONE (10:00)
[2017-05-16] MEDS: ASCORBIC ACID 500 MG TABLET PO SCH ×2 (10:23→21:03)
[2017-05-16 11:12] LABS: HEMATOCRIT 27.3 % (36-54); HEMOGLOBIN 8.8 g/dL (14.0-18.0); MEAN CORPUSCULAR HEMOGLOBIN 27 pg (27-31); MEAN CORPUSCULAR HGB CONC 32 % (32-36); MEAN CORPUSCULAR VOLUME 85 fL (79.0-98.0); PLATELET COUNT (AUTO) 479 K/uL (130-430); RED CELL DISTRIBUTION WIDTH 18.8 % (9.0-15.0); WHITE BLOOD COUNT (AUTO) 12.2 K/uL (4.8-10.8)
[2017-05-16 11:29] LABS: CALCIUM 9.5 mg/dL (8.4-11.0); CREATININE 1.66 mg/dL (0.55-1.30); POTASSIUM 3.5 mmol/L (3.5-5.1)
[2017-05-16 11:36] VITALS: BP_SYST 135
[2017-05-16 11:45] LABS: IRON (SERUM) 49 mcg/dL (59-158); TOTAL IRON BIND. CAPACITY 173 ug/dL (250-450)
[2017-05-16 12:11] LABS: ATYPICAL LYMPHOCYTES % 10 % (0-0); BAND % (MANUAL) 6 % (0-6); LYMPHOCYTES % (MANUAL) 31 % (20-46); MONOCYTES % (MANUAL) 3 % (0-11)
[2017-05-16 12:12] LABS: BASOPHILS % (MANUAL) 1 % (0-2); EOSINOPHILS % (MANUAL) 1 % (0-7)
[2017-05-16] MEDS: DILTIAZEM HCL 60 MG TABLET PO SCH ×2 (14:00→18:03)
[2017-05-16 16:08] VITALS: BP_SYST 130
[2017-05-16 20:10] VITALS: BP_SYST 128
[2017-05-16] MEDS: FAMOTIDINE 20 MG TABLET PO SCH (21:03)
[2017-05-16] MEDS: FERROUS SULFATE 325 MG TABLET.DR PO SCH (21:03)
[2017-05-16] MEDS: METOPROLOL TARTRATE 25 MG TABLET PO SCH (21:05)
[2017-05-17 00:10] VITALS: BP_SYST 121
[2017-05-17] MEDS: HYDROcodone/ACETAMIN 10-325 MG TAB PO PRN ×2 (00:45→11:07)
[2017-05-17] MEDS: DILTIAZEM HCL 60 MG TABLET PO SCH ×3 (00:49→14:15)
[2017-05-17] MEDS: cefTRIAXone 1 GM IVPB PREMIX 50 ML IV SCH (04:16)
[2017-05-17 05:07] VITALS: BP_SYST 142
[2017-05-17 07:21] LABS: HEMOGLOBIN 9.1 g/dL (14.0-18.0); MEAN CORPUSCULAR HEMOGLOBIN 28 pg (27-31); MEAN CORPUSCULAR HGB CONC 33 % (32-36); MEAN CORPUSCULAR VOLUME 87 fL (79.0-98.0); PLATELET COUNT (AUTO) 418 K/uL (130-430); RED BLOOD CELL COUNT(AUTO) 3.23 MIL/uL (4.2-6.2); RED CELL DISTRIBUTION WIDTH 17.8 % (9.0-15.0)
[2017-05-17 07:50] LABS: CALCIUM 9.4 mg/dL (8.4-11.0); CREATININE 1.6 mg/dL (0.55-1.30); PHOSPHORUS 3.8 mg/dL (2.7-4.5)
[2017-05-17 07:51] LABS: WHITE BLOOD COUNT (AUTO) 11.8 K/uL (4.8-10.8)
[2017-05-17 08:00] VITALS: BP_SYST 122
[2017-05-17] MEDS ORDERED: ALLOPURINOL 300 MG TABLET (ZYLOPRIM) PO SCH (09:00)
[2017-05-17] MEDS ORDERED: FUROSEMIDE 40 MG TABLET PO SCH (09:00)
[2017-05-17] MEDS ORDERED: ASPIRIN 81 MG TABLET(ECOTRIN) PO SCH (09:00)
[2017-05-17] MEDS ORDERED: DIGOXIN 0.125 MG TABLET PO SCH (09:00)
[2017-05-17] MEDS ORDERED: MULTIVITAMINS TAB 1 TABLET PO SCH (09:00)
[2017-05-17] MEDS ORDERED: POTASSIUM CHLORIDE 20 MEQ TAB.PRT.SR PO SCH (09:00)
[2017-05-17] MEDS: ASCORBIC ACID 500 MG TABLET PO SCH (09:02)
[2017-05-17] MEDS: FERROUS SULFATE 325 MG TABLET.DR PO SCH (09:02)
[2017-05-17] MEDS: FAMOTIDINE 20 MG TABLET PO SCH (09:02)
[2017-05-17] MEDS: METOPROLOL TARTRATE 25 MG TABLET PO SCH (09:03)
[2017-05-17 09:31] LABS: ATYPICAL LYMPHOCYTES % 0 % (0-0); BAND % (MANUAL) 0 % (0-6); BASOPHILS % (MANUAL) 0 % (0-2); EOSINOPHILS % (MANUAL) 5 % (0-7); LYMPHOCYTES % (MANUAL) 30 % (20-46); MONOCYTES % (MANUAL) 7 % (0-11)
[2017-05-17 12:00] VITALS: BP_SYST 122
[2017-05-17 14:39] VITALS: BP_SYST 122
[2017-05-17] MEDS ORDERED: FERR-57 PO (15:22)
== END 2017-05-17 15:35 | DRG 253 ==
LOC: SED 23:24 → STU 05-16 02:35
PROVIDERS: ADMIT Family Medicine; ATTEND Family Medicine
DX: K92.2 Gastrointestinal hemorrhage, unspecified (principal); N39.0 Urinary tract infection, site not specified; D63.8 Anemia in other chronic diseases classified elsewhere; K21.9 Gastro-esophageal reflux disease without esophagitis
CPT/HCPCS: 36415; 71010; 80048; 80053; 81000-TC; 82272; 83540-TC; 83550-TC; 83735-TC; 84100-TC; 85007; 85027; 85610-TC; 85730-TC; 86886; 86900; 86901; 86920; 87081; 96360; 99285; J0696; J1885; J1940; J7030; J7040; J7050; P9021

== ENCOUNTER 2017-07-18 21:14 | Inpatient (IN) | payer MEDICAID ==
[~2017-07-18] VITALS: Ht 188 cm; Wt 73.0 kg
[~2017-07-18 21:14] MED LIST changes: +ASCO500T20 PO; -FAMO-129 PO; +FERR-57 PO; +L.RH1CAP PO; -LACTIN PO; +MULT PO
[2017-07-18 21:38] VITALS: BP_SYST 143
[2017-07-18] MEDS ORDERED: DOCU-144 PO (21:46)
[2017-07-18] MEDS ORDERED: LACT10SO6 PO (21:48)
[2017-07-18] MEDS ORDERED: NITR-85 PO (21:50)
[2017-07-18] MEDS ORDERED: HYDR-1189 PO (21:53)
[2017-07-19] VITALS (7 sets, daily range): BP systolic 114–130
[2017-07-19] MEDS ORDERED: HYDROcodone/ACETAMIN 5-325 MG TAB (NORCO/ VICODIN) PO PRN
[2017-07-19 00:20] LABS: WHITE BLOOD COUNT (AUTO) 21.5 K/uL (4.8-10.8)
[2017-07-19 00:25] LABS: MEAN CORPUSCULAR HEMOGLOBIN 27 pg (27-31); MEAN CORPUSCULAR HGB CONC 33 % (32-36); MEAN CORPUSCULAR VOLUME 81 fL (79.0-98.0); PLATELET COUNT (AUTO) 499 K/uL (130-430); RED BLOOD CELL COUNT(AUTO) 2.27 MIL/uL (4.2-6.2); RED CELL DISTRIBUTION WIDTH 20.6 % (9.0-15.0)
[2017-07-19 00:27] LABS: HEMATOCRIT 18.3 % (36-54)
[2017-07-19 00:28] LABS: ANION GAP 9 (5-15); CALCIUM 9.8 mg/dL (8.4-11.0); CHLORIDE 96 mmol/L (98-107); CREATININE 2.84 mg/dL (0.55-1.30); GLUCOSE 110 mg/dL (70-99); HEMOGLOBIN 6.1 g/dL (14.0-18.0); POTASSIUM 5.4 mmol/L (3.5-5.1); SODIUM SERUM 128 mmol/L (136-145); UREA NITROGEN, BLOOD 45 mg/dL (8-21)
[2017-07-19 00:33] LABS: GFR AFRICAN AMERICAN 29 mL/min (>90); INR 1.2 (0.80-1.20); PROTHROMBIN TIME 13.1 SECS (9.5-12.5)
[2017-07-19 00:37] LABS: ALANINE AMINOTRANSFERASE 6 U/L (12-78); ALBUMIN 2.2 g/dL (3.4-4.8); ASPARTATE AMINOTRANSFERASE 22 U/L (10-37); TOTAL BILIRUBIN 0.6 mg/dL (0.0-1.0)
[2017-07-19 00:58] LABS: ATYPICAL LYMPHOCYTES % 0 % (0-0); BAND % (MANUAL) 0 % (0-6); BASOPHILS % (MANUAL) 0 % (0-2); EOSINOPHILS % (MANUAL) 0 % (0-7); LYMPHOCYTES % (MANUAL) 15 % (20-46); MONOCYTES % (MANUAL) 3 % (0-11)
[2017-07-19] MEDS: DILTIAZEM HCL 60 MG TABLET PO SCH ×3 (05:53→21:55)
[2017-07-19 07:06] LABS: MEAN CORPUSCULAR HEMOGLOBIN 26 pg (27-31); MEAN CORPUSCULAR HGB CONC 32 % (32-36); MEAN CORPUSCULAR VOLUME 81 fL (79.0-98.0); PLATELET COUNT (AUTO) 520 K/uL (130-430); RED BLOOD CELL COUNT(AUTO) 2.45 MIL/uL (4.2-6.2); RED CELL DISTRIBUTION WIDTH 19.4 % (9.0-15.0); WHITE BLOOD COUNT (AUTO) 20.4 K/uL (4.8-10.8)
[2017-07-19 07:08] LABS: INR 1.2 (0.80-1.20); PROTHROMBIN TIME 13.1 SECS (9.5-12.5)
[2017-07-19 07:14] LABS: CALCIUM 9.8 mg/dL (8.4-11.0); CREATININE 2.94 mg/dL (0.55-1.30); POTASSIUM 4.9 mmol/L (3.5-5.1); TOTAL BILIRUBIN 0.8 mg/dL (0.0-1.0)
[2017-07-19 07:52] LABS: HEMATOCRIT 19.8 % (36-54); HEMOGLOBIN 6.4 g/dL (14.0-18.0)
[2017-07-19] MEDS: FUROSEMIDE 40 MG TABLET PO SCH (09:00)
[2017-07-19] MEDS ORDERED: NITROFURANTOIN MONOHYD/M-CRYST 100 MG CAPSULE PO SCH (09:00)
[2017-07-19] MEDS: DOCUSATE SODIUM 100 MG CAPSULE PO SCH ×3 (09:00→21:56)
[2017-07-19] MEDS: MILK OF MAGNESIA 30 ML UDC PO SCH ×2 (09:00→10:07)
[2017-07-19] MEDS ORDERED: ACETAMINOPHEN 325 MG TABLET PO PRN ×2 (09:15)
[2017-07-19] MEDS ORDERED: ONDANSETRON HCL 4 MG/2 ML VIAL IVP PRN (09:15)
[2017-07-19] MEDS ORDERED: DOCUSATE SODIUM 100 MG CAPSULE PO PRN (09:15)
[2017-07-19] MEDS ORDERED: ZOLPIDEM TARTRATE 5 MG TABLET PO PRN (09:15)
[2017-07-19] MEDS ORDERED: POTASSIUM CHLORIDE 10 MEQ TAB.PRT.SR PO PRN (09:15)
[2017-07-19] MEDS ORDERED: LORazepam 2 MG/ML VIAL IVP PRN (09:15)
[2017-07-19] MEDS ORDERED: MAGNESIUM SULFATE 50 ML IV PRN (09:15)
[2017-07-19] MEDS ORDERED: MORPHINE 2 MG/ML INJ. SYRINGE IVP PRN ×2 (09:15)
[2017-07-19] MEDS ORDERED: DIPHENHYDRAMINE HCL 12.5 MG/5 ML UDC NG ONE (09:30)
[2017-07-19] MEDS ORDERED: ACETAMINOPHEN 325 MG TABLET PO ONE (09:30)
[2017-07-19] MEDS ORDERED: 0.45% NS 500 ML IV ONE (09:30)
[2017-07-19] MEDS: PIPERACILLIN/TAZO 2.25G/DEX-IS 50 ML IV SCH ×3 (09:30→17:10)
[2017-07-19] MEDS: METOPROLOL TARTRATE 25 MG TABLET PO SCH ×3 (09:57→21:55)
[2017-07-19] MEDS: DIGOXIN 0.125 MG TABLET PO SCH (09:57)
[2017-07-19] MEDS: APIXABAN 2.5 MG TABLET PO SCH ×3 (09:58→21:56)
[2017-07-19] MEDS: ASPIRIN 81 MG TABLET(ECOTRIN) PO SCH (09:59)
[2017-07-19] MEDS: POTASSIUM CHLORIDE 20 MEQ TAB.PRT.SR PO SCH (10:01)
[2017-07-19] MEDS: ASCORBIC ACID 500 MG TABLET PO SCH ×3 (10:02→21:56)
[2017-07-19] MEDS: MULTIVITAMINS TAB 1 TABLET PO SCH (10:02)
[2017-07-19] MEDS: FERROUS SULFATE 325 MG TABLET.DR PO SCH ×4 (10:02→21:54)
[2017-07-19] MEDS: ALLOPURINOL 300 MG TABLET (ZYLOPRIM) PO SCH (10:04)
[2017-07-19] MEDS: LACTOBACILLUS RHAMNOSUS GG 1 CAP CAPSULE PO SCH (10:05)
[2017-07-19] MEDS: LACTULOSE 20 GM/30 ML UDC PO SCH ×4 (10:06→21:54)
[2017-07-19 10:41] LABS: BILIRUBIN,URINE NEGATIVE (NEGATIVE); BLOOD, URINE 3+ (NEGATIVE); CLARITY/URINE HAZY (CLEAR); COLOR,URINE YELLOW (YELLOW); GLUCOSE,URINE NEGATIVE (NEGATIVE); KETONES,URINE NEGATIVE (NEGATIVE); LEUKOCYTE ESTERASE ,URINE 3+ (NEGATIVE); NITRITE, URINE NEGATIVE (NEGATIVE); PROTEIN URINE 1+ (NEGATIVE); UROBILINOGEN,URINE 0.2 (0.2-1.0)
[2017-07-19 10:46] LABS: BACTERIA,URINE MODERATE /HPF (None Seen); RBC,URINE 0-3 /HPF (0-3); WBC,URINE >100 /HPF (0-3)
[2017-07-19 10:47] LABS: MUCUS,URINE None Seen /LPF (None Seen)
[2017-07-19 11:35] LABS: TOTAL IRON BIND. CAPACITY 103 ug/dL (250-450)
[2017-07-19 11:38] LABS: ATYPICAL LYMPHOCYTES % 0 % (0-0); BAND % (MANUAL) 3 % (0-6); BASOPHILS % (MANUAL) 0 % (0-2); EOSINOPHILS % (MANUAL) 0 % (0-7); LYMPHOCYTES % (MANUAL) 16 % (20-46); MONOCYTES % (MANUAL) 15 % (0-11)
[2017-07-19] MEDS: FAMOTIDINE 20 MG TABLET PO SCH (16:27)
[2017-07-19] MEDS ORDERED: FAMOTIDINE 20 MG TABLET ONE (16:36)
[2017-07-19] MEDS: HYDROcodone/ACETAMIN 10-325 MG TAB PO PRN (17:10)
[2017-07-20] VITALS (7 sets, daily range): BP systolic 108–140
[2017-07-20] MEDS: PIPERACILLIN/TAZO 2.25G/DEX-IS 50 ML IV SCH ×4 (00:41→18:34)
[2017-07-20] MEDS: HYDROcodone/ACETAMIN 10-325 MG TAB PO PRN ×3 (03:47→20:55)
[2017-07-20] MEDS: DILTIAZEM HCL 60 MG TABLET PO SCH ×3 (06:39→21:00)
[2017-07-20 07:01] LABS: MEAN CORPUSCULAR HEMOGLOBIN 26 pg (27-31); MEAN CORPUSCULAR HGB CONC 32 % (32-36); MEAN CORPUSCULAR VOLUME 81 fL (79.0-98.0); PLATELET COUNT (AUTO) 498 K/uL (130-430); RED BLOOD CELL COUNT(AUTO) 2.63 MIL/uL (4.2-6.2); RED CELL DISTRIBUTION WIDTH 18.3 % (9.0-15.0); WHITE BLOOD COUNT (AUTO) 20.5 K/uL (4.8-10.8)
[2017-07-20 07:27] LABS: CALCIUM 9.6 mg/dL (8.4-11.0); CREATININE 2.76 mg/dL (0.55-1.30); POTASSIUM 4.8 mmol/L (3.5-5.1)
[2017-07-20 07:57] LABS: HEMOGLOBIN 6.7 g/dL (14.0-18.0)
[2017-07-20 07:58] LABS: HEMATOCRIT 21.3 % (36-54)
[2017-07-20 08:11] LABS: FOLATE (FOLIC ACID) 12.6 ng/mL (>3.0)
[2017-07-20] MEDS: LACTULOSE 20 GM/30 ML UDC PO SCH ×3 (08:24→20:37)
[2017-07-20] MEDS: FAMOTIDINE 20 MG TABLET PO SCH (08:24)
[2017-07-20] MEDS: MILK OF MAGNESIA 30 ML UDC PO SCH (08:24)
[2017-07-20] MEDS: POTASSIUM CHLORIDE 20 MEQ TAB.PRT.SR PO SCH (08:24)
[2017-07-20] MEDS: DIGOXIN 0.125 MG TABLET PO SCH (08:24)
[2017-07-20] MEDS: APIXABAN 2.5 MG TABLET PO SCH ×2 (08:24→20:36)
[2017-07-20] MEDS: ASCORBIC ACID 500 MG TABLET PO SCH ×2 (08:25→20:36)
[2017-07-20] MEDS: LACTOBACILLUS RHAMNOSUS GG 1 CAP CAPSULE PO SCH (08:25)
[2017-07-20] MEDS: DOCUSATE SODIUM 100 MG CAPSULE PO SCH ×2 (08:25→20:36)
[2017-07-20] MEDS: ASPIRIN 81 MG TABLET(ECOTRIN) PO SCH (08:25)
[2017-07-20] MEDS: FERROUS SULFATE 325 MG TABLET.DR PO SCH ×3 (08:25→20:36)
[2017-07-20] MEDS: MULTIVITAMINS TAB 1 TABLET PO SCH (08:25)
[2017-07-20] MEDS: ALLOPURINOL 300 MG TABLET (ZYLOPRIM) PO SCH (08:26)
[2017-07-20] MEDS: METOPROLOL TARTRATE 25 MG TABLET PO SCH ×2 (08:26→20:42)
[2017-07-20] MEDS: FUROSEMIDE 40 MG TABLET PO SCH (08:27)
[2017-07-20] MEDS ORDERED: ACETAMINOPHEN 325 MG TABLET PO ONE (09:30)
[2017-07-20] MEDS ORDERED: LORATADINE 10 MG TABLET PO ONE (09:30)
[2017-07-20 10:27] LABS: ATYPICAL LYMPHOCYTES % 2 % (0-0); BAND % (MANUAL) 2 % (0-6); BASOPHILS % (MANUAL) 0 % (0-2); EOSINOPHILS % (MANUAL) 0 % (0-7); LYMPHOCYTES % (MANUAL) 13 % (20-46); MONOCYTES % (MANUAL) 4 % (0-11)
[2017-07-20] MEDS: VANCOMYCIN HCL 1,000 MG in NS 250 ML IV SCH (15:53)
[2017-07-21] MEDS: PIPERACILLIN/TAZO 2.25G/DEX-IS 50 ML IV SCH ×4 (00:21→17:45)
[2017-07-21 03:31] VITALS: BP_SYST 127
[2017-07-21] MEDS: HYDROcodone/ACETAMIN 10-325 MG TAB PO PRN ×2 (05:38→13:15)
[2017-07-21] MEDS: DILTIAZEM HCL 60 MG TABLET PO SCH ×3 (05:39→21:38)
[2017-07-21 06:39] LABS: CREATININE 2.74 mg/dL (0.55-1.30); POTASSIUM 4.8 mmol/L (3.5-5.1)
[2017-07-21 06:52] LABS: HEMATOCRIT 24.8 % (36-54); HEMOGLOBIN 8.1 g/dL (14.0-18.0); MEAN CORPUSCULAR HEMOGLOBIN 27 pg (27-31); MEAN CORPUSCULAR HGB CONC 33 % (32-36); MEAN CORPUSCULAR VOLUME 83 fL (79.0-98.0); PLATELET COUNT (AUTO) 520 K/uL (130-430); RED BLOOD CELL COUNT(AUTO) 2.99 MIL/uL (4.2-6.2); RED CELL DISTRIBUTION WIDTH 18.7 % (9.0-15.0); WHITE BLOOD COUNT (AUTO) 21.5 K/uL (4.8-10.8)
[2017-07-21 08:57] VITALS: BP_SYST 117
[2017-07-21] MEDS: APIXABAN 2.5 MG TABLET PO SCH ×2 (09:29→21:36)
[2017-07-21] MEDS: LACTOBACILLUS RHAMNOSUS GG 1 CAP CAPSULE PO SCH (09:29)
[2017-07-21] MEDS: DOCUSATE SODIUM 100 MG CAPSULE PO SCH ×2 (09:30→21:37)
[2017-07-21] MEDS: FUROSEMIDE 40 MG TABLET PO SCH (09:32)
[2017-07-21] MEDS: MULTIVITAMINS TAB 1 TABLET PO SCH (09:35)
[2017-07-21] MEDS: FERROUS SULFATE 325 MG TABLET.DR PO SCH ×3 (09:36→21:36)
[2017-07-21] MEDS: ASPIRIN 81 MG TABLET(ECOTRIN) PO SCH (09:37)
[2017-07-21] MEDS: DIGOXIN 0.125 MG TABLET PO SCH (09:37)
[2017-07-21] MEDS: ASCORBIC ACID 500 MG TABLET PO SCH ×2 (09:37→21:36)
[2017-07-21] MEDS: FAMOTIDINE 20 MG TABLET PO SCH (09:39)
[2017-07-21] MEDS: METOPROLOL TARTRATE 25 MG TABLET PO SCH ×2 (09:39→21:37)
[2017-07-21] MEDS: POTASSIUM CHLORIDE 20 MEQ TAB.PRT.SR PO SCH (09:39)
[2017-07-21] MEDS: ALLOPURINOL 300 MG TABLET (ZYLOPRIM) PO SCH (09:41)
[2017-07-21] MEDS: MILK OF MAGNESIA 30 ML UDC PO SCH (09:42)
[2017-07-21] MEDS: LACTULOSE 20 GM/30 ML UDC PO SCH ×3 (09:42→21:00)
[2017-07-21 11:38] LABS: BAND % (MANUAL) 1 % (0-6); BASOPHILS % (MANUAL) 0 % (0-2); EOSINOPHILS % (MANUAL) 0 % (0-7); LYMPHOCYTES % (MANUAL) 10 % (20-46); MONOCYTES % (MANUAL) 4 % (0-11)
[2017-07-21 12:00] VITALS: BP_SYST 108
[2017-07-21] MEDS: VANCOMYCIN HCL 1,000 MG in NS 250 ML IV SCH (12:33)
[2017-07-21 16:43] VITALS: BP_SYST 109
[2017-07-21] MEDS: SOD FERRIC GLUC COMPLEX/SUC 125 MG in NS 100 ML IV SCH (18:41)
[2017-07-21] MEDS ORDERED: BALSAM PERU/CASTOR OIL 60 GM OINT...G. TP PRN (18:45)
[2017-07-21] MEDS: MUPIROCIN 2% TOPICAL OINTMENT 22 GM TP SCH (21:00)
[2017-07-21 23:30] VITALS: BP_SYST 106
[2017-07-22] MEDS: PIPERACILLIN/TAZO 2.25G/DEX-IS 50 ML IV SCH ×5 (00:39→23:46)
[2017-07-22] MEDS: HYDROcodone/ACETAMIN 10-325 MG TAB PO PRN ×3 (01:15→20:55)
[2017-07-22 03:31] VITALS: BP_SYST 130
[2017-07-22] MEDS: DILTIAZEM HCL 60 MG TABLET PO SCH ×3 (05:39→22:33)
[2017-07-22 06:52] LABS: HEMOGLOBIN 7.2 g/dL (14.0-18.0)
[2017-07-22 06:59] LABS: MEAN CORPUSCULAR HEMOGLOBIN 27 pg (27-31); MEAN CORPUSCULAR HGB CONC 33 % (32-36); MEAN CORPUSCULAR VOLUME 82 fL (79.0-98.0); PLATELET COUNT (AUTO) 476 K/uL (130-430); RED BLOOD CELL COUNT(AUTO) 2.65 MIL/uL (4.2-6.2); RED CELL DISTRIBUTION WIDTH 19.1 % (9.0-15.0); WHITE BLOOD COUNT (AUTO) 18.8 K/uL (4.8-10.8)
[2017-07-22 07:00] LABS: CALCIUM 9.6 mg/dL (8.4-11.0); CREATININE 2.57 mg/dL (0.55-1.30); POTASSIUM 4.7 mmol/L (3.5-5.1)
[2017-07-22 07:04] LABS: HEMATOCRIT 21.6 % (36-54)
[2017-07-22 08:55] VITALS: BP_SYST 103
[2017-07-22] MEDS: MILK OF MAGNESIA 30 ML UDC PO SCH ×2 (09:00→10:01)
[2017-07-22] MEDS: LACTULOSE 20 GM/30 ML UDC PO SCH ×4 (09:00→20:59)
[2017-07-22] MEDS: METOPROLOL TARTRATE 25 MG TABLET PO SCH ×2 (09:00→21:00)
[2017-07-22] MEDS: POTASSIUM CHLORIDE 20 MEQ TAB.PRT.SR PO SCH ×2 (09:00→10:00)
[2017-07-22 09:09] LABS: BASOPHILS % (MANUAL) 0 % (0-2); EOSINOPHILS % (MANUAL) 0 % (0-7); LYMPHOCYTES % (MANUAL) 16 % (20-46); MONOCYTES % (MANUAL) 5 % (0-11)
[2017-07-22] MEDS: ASCORBIC ACID 500 MG TABLET PO SCH ×2 (09:59→20:57)
[2017-07-22] MEDS: MULTIVITAMINS TAB 1 TABLET PO SCH (09:59)
[2017-07-22] MEDS: DOCUSATE SODIUM 100 MG CAPSULE PO SCH ×2 (10:00→20:58)
[2017-07-22] MEDS: FAMOTIDINE 20 MG TABLET PO SCH (10:00)
[2017-07-22] MEDS: LACTOBACILLUS RHAMNOSUS GG 1 CAP CAPSULE PO SCH (10:00)
[2017-07-22] MEDS: ASPIRIN 81 MG TABLET(ECOTRIN) PO SCH (10:00)
[2017-07-22] MEDS: DIGOXIN 0.125 MG TABLET PO SCH (10:00)
[2017-07-22] MEDS: ALLOPURINOL 300 MG TABLET (ZYLOPRIM) PO SCH (10:00)
[2017-07-22] MEDS: FUROSEMIDE 40 MG TABLET PO SCH (10:00)
[2017-07-22] MEDS: APIXABAN 2.5 MG TABLET PO SCH ×2 (10:01→20:56)
[2017-07-22] MEDS: FERROUS SULFATE 325 MG TABLET.DR PO SCH ×3 (10:01→20:56)
[2017-07-22 11:52] VITALS: BP_SYST 110
[2017-07-22] MEDS: BALSAM PERU/CASTOR OIL 60 GM OINT...G. TP SCH (12:14)
[2017-07-22] MEDS: MUPIROCIN 2% TOPICAL OINTMENT 22 GM TP SCH ×2 (12:15→21:26)
[2017-07-22] MEDS: VANCOMYCIN HCL 1,000 MG in NS 250 ML IV SCH (12:42)
[2017-07-22] MEDS: SOD FERRIC GLUC COMPLEX/SUC 125 MG in NS 100 ML IV SCH (15:32)
[2017-07-22 16:50] VITALS: BP_SYST 126
[2017-07-22 19:00] VITALS: BP_SYST 108
[2017-07-23 01:03] VITALS: BP_SYST 115
[2017-07-23] MEDS: HYDROcodone/ACETAMIN 10-325 MG TAB PO PRN ×3 (04:00→22:31)
[2017-07-23 04:46] VITALS: BP_SYST 106
[2017-07-23] MEDS: PIPERACILLIN/TAZO 2.25G/DEX-IS 50 ML IV SCH ×4 (05:56→23:34)
[2017-07-23] MEDS: DILTIAZEM HCL 60 MG TABLET PO SCH ×3 (05:58→22:34)
[2017-07-23 08:26] LABS: HEMATOCRIT 24.3 % (36-54); HEMOGLOBIN 7.7 g/dL (14.0-18.0); MEAN CORPUSCULAR HEMOGLOBIN 26 pg (27-31); MEAN CORPUSCULAR HGB CONC 32 % (32-36); MEAN CORPUSCULAR VOLUME 82 fL (79.0-98.0); PLATELET COUNT (AUTO) 579 K/uL (130-430); RED BLOOD CELL COUNT(AUTO) 2.96 MIL/uL (4.2-6.2); RED CELL DISTRIBUTION WIDTH 19.3 % (9.0-15.0); WHITE BLOOD COUNT (AUTO) 19.7 K/uL (4.8-10.8)
[2017-07-23 08:39] LABS: CREATININE 2.73 mg/dL (0.55-1.30); POTASSIUM 4.9 mmol/L (3.5-5.1)
[2017-07-23 08:50] VITALS: BP_SYST 114
[2017-07-23 09:02] LABS: BAND % (MANUAL) 1 % (0-6); BASOPHILS % (MANUAL) 0 % (0-2); EOSINOPHILS % (MANUAL) 1 % (0-7); LYMPHOCYTES % (MANUAL) 16 % (20-46); MONOCYTES % (MANUAL) 4 % (0-11)
[2017-07-23] MEDS: ASPIRIN 81 MG TABLET(ECOTRIN) PO SCH (09:42)
[2017-07-23] MEDS: ASCORBIC ACID 500 MG TABLET PO SCH ×2 (09:42→19:59)
[2017-07-23] MEDS: MULTIVITAMINS TAB 1 TABLET PO SCH (09:42)
[2017-07-23] MEDS: FUROSEMIDE 40 MG TABLET PO SCH (09:42)
[2017-07-23] MEDS: LACTOBACILLUS RHAMNOSUS GG 1 CAP CAPSULE PO SCH (09:42)
[2017-07-23] MEDS: APIXABAN 2.5 MG TABLET PO SCH ×2 (09:43→19:59)
[2017-07-23] MEDS: POTASSIUM CHLORIDE 20 MEQ TAB.PRT.SR PO SCH (09:43)
[2017-07-23] MEDS: MILK OF MAGNESIA 30 ML UDC PO SCH (09:43)
[2017-07-23] MEDS: DOCUSATE SODIUM 100 MG CAPSULE PO SCH ×2 (09:43→19:58)
[2017-07-23] MEDS: METOPROLOL TARTRATE 25 MG TABLET PO SCH ×2 (09:44→19:59)
[2017-07-23] MEDS: DIGOXIN 0.125 MG TABLET PO SCH (09:44)
[2017-07-23] MEDS: LACTULOSE 20 GM/30 ML UDC PO SCH ×3 (09:45→19:58)
[2017-07-23] MEDS: FAMOTIDINE 20 MG TABLET PO SCH (09:45)
[2017-07-23] MEDS: FERROUS SULFATE 325 MG TABLET.DR PO SCH ×3 (09:45→19:59)
[2017-07-23] MEDS: MUPIROCIN 2% TOPICAL OINTMENT 22 GM TP SCH ×2 (09:45→22:31)
[2017-07-23] MEDS: ALLOPURINOL 300 MG TABLET (ZYLOPRIM) PO SCH (09:46)
[2017-07-23] MEDS ORDERED: Vancomycin Per Pharmacy XX (10:14)
[2017-07-23] MEDS: VANCOMYCIN HCL 1,000 MG in NS 250 ML IV SCH (12:13)
[2017-07-23] MEDS: BALSAM PERU/CASTOR OIL 60 GM OINT...G. TP SCH (12:42)
[2017-07-23 12:53] VITALS: BP_SYST 110
[2017-07-23 16:13] VITALS: BP_SYST 116
[2017-07-24 00:34] VITALS: BP_SYST 104
[2017-07-24] MEDS: HYDROcodone/ACETAMIN 10-325 MG TAB PO PRN ×4 (04:37→23:37)
[2017-07-24 04:49] VITALS: BP_SYST 120
[2017-07-24] MEDS: DILTIAZEM HCL 60 MG TABLET PO SCH ×3 (05:42→20:59)
[2017-07-24] MEDS: PIPERACILLIN/TAZO 2.25G/DEX-IS 50 ML IV SCH ×4 (05:43→23:21)
[2017-07-24 07:14] LABS: HEMATOCRIT 22.4 % (36-54); HEMOGLOBIN 7.3 g/dL (14.0-18.0); MEAN CORPUSCULAR HEMOGLOBIN 27 pg (27-31); MEAN CORPUSCULAR HGB CONC 33 % (32-36); MEAN CORPUSCULAR VOLUME 83 fL (79.0-98.0); PLATELET COUNT (AUTO) 492 K/uL (130-430); RED BLOOD CELL COUNT(AUTO) 2.72 MIL/uL (4.2-6.2); RED CELL DISTRIBUTION WIDTH 19.7 % (9.0-15.0); WHITE BLOOD COUNT (AUTO) 13.6 K/uL (4.8-10.8)
[2017-07-24 08:34] VITALS: BP_SYST 109
[2017-07-24 09:06] LABS: CALCIUM 9.3 mg/dL (8.4-11.0); CREATININE 2.59 mg/dL (0.55-1.30); POTASSIUM 4.5 mmol/L (3.5-5.1)
[2017-07-24] MEDS: DIGOXIN 0.125 MG TABLET PO SCH (09:35)
[2017-07-24] MEDS: ASPIRIN 81 MG TABLET(ECOTRIN) PO SCH (09:38)
[2017-07-24] MEDS: POTASSIUM CHLORIDE 20 MEQ TAB.PRT.SR PO SCH (09:38)
[2017-07-24] MEDS: APIXABAN 2.5 MG TABLET PO SCH ×2 (09:39→20:58)
[2017-07-24] MEDS: FAMOTIDINE 20 MG TABLET PO SCH (09:39)
[2017-07-24] MEDS: ASCORBIC ACID 500 MG TABLET PO SCH ×2 (09:40→20:59)
[2017-07-24] MEDS: FERROUS SULFATE 325 MG TABLET.DR PO SCH ×3 (09:40→21:01)
[2017-07-24] MEDS: MULTIVITAMINS TAB 1 TABLET PO SCH (09:40)
[2017-07-24] MEDS: LACTOBACILLUS RHAMNOSUS GG 1 CAP CAPSULE PO SCH (09:40)
[2017-07-24] MEDS: FUROSEMIDE 40 MG TABLET PO SCH (09:41)
[2017-07-24] MEDS: DOCUSATE SODIUM 100 MG CAPSULE PO SCH ×2 (09:41→21:06)
[2017-07-24] MEDS: METOPROLOL TARTRATE 25 MG TABLET PO SCH ×2 (09:42→20:59)
[2017-07-24] MEDS: MILK OF MAGNESIA 30 ML UDC PO SCH (09:44)
[2017-07-24] MEDS: LACTULOSE 20 GM/30 ML UDC PO SCH ×3 (09:44→20:57)
[2017-07-24] MEDS: BALSAM PERU/CASTOR OIL 60 GM OINT...G. TP SCH (09:46)
[2017-07-24] MEDS: MUPIROCIN 2% TOPICAL OINTMENT 22 GM TP SCH ×2 (09:46→21:01)
[2017-07-24] MEDS: ALLOPURINOL 300 MG TABLET (ZYLOPRIM) PO SCH (09:48)
[2017-07-24 09:55] LABS: EOSINOPHILS % (MANUAL) 0 % (0-7); LYMPHOCYTES % (MANUAL) 16 % (20-46); MONOCYTES % (MANUAL) 8 % (0-11)
[2017-07-24 09:56] LABS: BASOPHILS % (MANUAL) 0 % (0-2)
[2017-07-24 11:40] VITALS: BP_SYST 103
[2017-07-24] MEDS: VANCOMYCIN HCL 1,000 MG in NS 250 ML IV SCH (13:03)
[2017-07-24 15:31] VITALS: BP_SYST 112
[2017-07-24] MEDS ORDERED: cloNIDine HCL 0.1 MG TABLET PO ONE (16:30)
[2017-07-24] MEDS ORDERED: VANCOMYCIN HCL 750 MG in NS 250 ML IV SCH (18:00)
[2017-07-24 18:04] LABS: HEMATOCRIT 23.7 % (36-54); HEMOGLOBIN 7.5 g/dL (14.0-18.0); MEAN CORPUSCULAR HEMOGLOBIN 26 pg (27-31); MEAN CORPUSCULAR HGB CONC 32 % (32-36); MEAN CORPUSCULAR VOLUME 82 fL (79.0-98.0); PLATELET COUNT (AUTO) 522 K/uL (130-430); RED BLOOD CELL COUNT(AUTO) 2.88 MIL/uL (4.2-6.2); RED CELL DISTRIBUTION WIDTH 19.8 % (9.0-15.0); WHITE BLOOD COUNT (AUTO) 14.2 K/uL (4.8-10.8)
[2017-07-24 19:09] LABS: BAND % (MANUAL) 0 % (0-6)
[2017-07-24 19:10] LABS: ATYPICAL LYMPHOCYTES % 0 % (0-0); BASOPHILS % (MANUAL) 0 % (0-2); EOSINOPHILS % (MANUAL) 5 % (0-7); LYMPHOCYTES % (MANUAL) 24 % (20-46); MONOCYTES % (MANUAL) 4 % (0-11)
[2017-07-24 19:30] VITALS: BP_SYST 102
[2017-07-25 00:18] VITALS: BP_SYST 119
[2017-07-25 04:06] VITALS: BP_SYST 114
[2017-07-25] MEDS: PIPERACILLIN/TAZO 2.25G/DEX-IS 50 ML IV SCH ×2 (05:38→11:02)
[2017-07-25] MEDS: DILTIAZEM HCL 60 MG TABLET PO SCH ×2 (06:39→13:17)
[2017-07-25 07:25] LABS: HEMATOCRIT 24.1 % (36-54); HEMOGLOBIN 7.8 g/dL (14.0-18.0); MEAN CORPUSCULAR HEMOGLOBIN 27 pg (27-31); MEAN CORPUSCULAR HGB CONC 33 % (32-36); MEAN CORPUSCULAR VOLUME 83 fL (79.0-98.0); PLATELET COUNT (AUTO) 498 K/uL (130-430); RED CELL DISTRIBUTION WIDTH 19.9 % (9.0-15.0)
[2017-07-25 08:02] LABS: CALCIUM 9.4 mg/dL (8.4-11.0); CREATININE 2.42 mg/dL (0.55-1.30); POTASSIUM 5.4 mmol/L (3.5-5.1)
[2017-07-25 08:16] LABS: PHOSPHORUS 3.1 mg/dL (2.7-4.5)
[2017-07-25 08:26] LABS: WHITE BLOOD COUNT (AUTO) 14.1 K/uL (4.8-10.8)
[2017-07-25] MEDS: MILK OF MAGNESIA 30 ML UDC PO SCH (09:00)
[2017-07-25] MEDS: LACTULOSE 20 GM/30 ML UDC PO SCH ×2 (09:00→14:48)
[2017-07-25] MEDS: DOCUSATE SODIUM 100 MG CAPSULE PO SCH (09:00)
[2017-07-25] MEDS: POTASSIUM CHLORIDE 20 MEQ TAB.PRT.SR PO SCH (09:05)
[2017-07-25] MEDS: MULTIVITAMINS TAB 1 TABLET PO SCH (09:05)
[2017-07-25] MEDS: FAMOTIDINE 20 MG TABLET PO SCH (09:05)
[2017-07-25] MEDS: ALLOPURINOL 300 MG TABLET (ZYLOPRIM) PO SCH (09:05)
[2017-07-25] MEDS: DIGOXIN 0.125 MG TABLET PO SCH (09:06)
[2017-07-25] MEDS: FUROSEMIDE 40 MG TABLET PO SCH (09:06)
[2017-07-25] MEDS: FERROUS SULFATE 325 MG TABLET.DR PO SCH ×2 (09:06→15:06)
[2017-07-25] MEDS: METOPROLOL TARTRATE 25 MG TABLET PO SCH (09:06)
[2017-07-25] MEDS: ASCORBIC ACID 500 MG TABLET PO SCH (09:07)
[2017-07-25] MEDS: LACTOBACILLUS RHAMNOSUS GG 1 CAP CAPSULE PO SCH (09:07)
[2017-07-25] MEDS: APIXABAN 2.5 MG TABLET PO SCH (09:07)
[2017-07-25] MEDS: ASPIRIN 81 MG TABLET(ECOTRIN) PO SCH (09:07)
[2017-07-25] MEDS: BALSAM PERU/CASTOR OIL 60 GM OINT...G. TP SCH (09:08)
[2017-07-25] MEDS: MUPIROCIN 2% TOPICAL OINTMENT 22 GM TP SCH (09:52)
[2017-07-25] MEDS ORDERED: SULFAMETHOXAZOLE/TRIMETHOPR DS 1 TABLET PO ONE (10:15)
[2017-07-25] MEDS ORDERED: SODIUM POLYSTYRENE SULFONATE 15 GM/60 ML UDBTL PO ONE (10:15)
[2017-07-25 11:17] LABS: BASOPHILS % (MANUAL) 0 % (0-2); EOSINOPHILS % (MANUAL) 1 % (0-7); LYMPHOCYTES % (MANUAL) 27 % (20-46); MONOCYTES % (MANUAL) 5 % (0-11)
[2017-07-25 11:27] VITALS: BP_SYST 116
[2017-07-25 11:30] VITALS: BP_SYST 118
[2017-07-25] MEDS: HYDROcodone/ACETAMIN 10-325 MG TAB PO PRN (13:15)
[2017-07-25 15:44] VITALS: BP_SYST 179
[2017-07-25] MEDS ORDERED: SULFAMETHOXAZOLE/TRIMETHOPR DS 1 TABLET PO SCH (21:00)
== END 2017-07-25 15:49 | DRG 720 ==
LOC: SED 21:14 → SMU 23:26
PROVIDERS: ADMIT General Practice; ATTEND General Practice
PROC: 30233N1 Transfusion of Nonautologous Red Blood Cells into Peripheral Vein, Percutaneous Approach (ICD-10-PCS; principal; 2017-07-19)
DX: A41.02 Sepsis due to Methicillin resistant Staphylococcus aureus (principal); N17.0 Acute kidney failure with tubular necrosis; G93.41 Metabolic encephalopathy; E43 Unspecified severe protein-calorie malnutrition; L89.159 Pressure ulcer of sacral region, unspecified stage; I11.0 Hypertensive heart disease with heart failure; J18.9 Pneumonia, unspecified organism; I50.9 Heart failure, unspecified; M17.0 Bilateral primary osteoarthritis of knee; I48.91 Unspecified atrial fibrillation; F39 Unspecified mood [affective] disorder; K21.9 Gastro-esophageal reflux disease without esophagitis; D50.9 Iron deficiency anemia, unspecified; N39.0 Urinary tract infection, site not specified; Z79.899 Other long term (current) drug therapy; Z91.011 Allergy to milk products; Z68.20 Body mass index [BMI] 20.0-20.9, adult
CPT/HCPCS: 36415; 71010; 80048; 80053; 80202-TC; 81000-TC; 82272; 82607; 82728; 82746; 83540-TC; 83550-TC; 83735-TC; 83880; 84100-TC; 84484; 85007; 85027; 85384-TC; 85610-TC; 85730-TC; 86886; 86900; 86901; 86920; 87081; 87086; 87186-TC; 99285; J2543; J2916; J3370; J7040; J7050; P9021

== ENCOUNTER 2020-02-17 11:04 | Emergency (ER) | payer OTHER, MEDICAID ==
[~2020-02-17] VITALS: Ht 182.9 cm; Wt 113.4 kg
[~2020-02-17 11:04] MED LIST changes: -ASPI-1063 PO; +ASPI-1153 PO; +DOCU-144 PO; +FAMO-132 PO; -FAMO20TA98 PO; +HYDR-1189 PO; -HYDR-2489 PO; +HYDR-4274 PO; +LACT10SO6 PO; -MAGN400O4 PO; +MOM PO; +NITR-85 PO; +Vancomycin Per Pharmacy XX
[2020-02-17 11:30] VITALS: BP_SYST 150
--- NOTE | 2020-02-17 11:36 | NUR ---
Patient to AMB1 to gown for evaluation. Side rails up.
--- NOTE | 2020-02-17 11:40 | NUR ---
CYNTHIA Neely at bedside examining patient.
--- NOTE | 2020-02-17 11:45 | NUR ---
PT SENT FROM [facility] FOR ABNORMAL LABS
[2020-02-17 12:07] LABS: HEMATOCRIT 33.9 % (36-54); HEMOGLOBIN 11.3 g/dL (14.0-18.0); MEAN CORPUSCULAR HEMOGLOBIN 29 pg (27-31); MEAN CORPUSCULAR HGB CONC 33 % (32-36); MEAN CORPUSCULAR VOLUME 88 fL (79.0-98.0); PLATELET COUNT (AUTO) 270 K/uL (130-430); RED BLOOD CELL COUNT(AUTO) 3.85 MIL/uL (4.2-6.2); WHITE BLOOD COUNT (AUTO) 8.2 K/uL (4.8-10.8)
[2020-02-17 12:10] LABS: ANION GAP 4 (5-15); CALCIUM 8.4 mg/dL (8.4-11.0); CHLORIDE 103 mmol/L (98-107); CREATININE 1.88 mg/dL (0.55-1.30); GLUCOSE 112 mg/dL (70-99); SODIUM SERUM 138 mmol/L (136-145); UREA NITROGEN, BLOOD 25 mg/dL (8-21)
[2020-02-17 12:11] LABS: GFR AFRICAN AMERICAN 46 mL/min (>90)
[2020-02-17 12:20] LABS: ALANINE AMINOTRANSFERASE 16 U/L (12-78); ALBUMIN 2.8 g/dL (3.4-4.8); ASPARTATE AMINOTRANSFERASE 33 U/L (10-37); TOTAL BILIRUBIN 1.2 mg/dL (0.0-1.0)
[2020-02-17 12:29] LABS: ATYPICAL LYMPHOCYTES % 0 % (0-0); BAND % (MANUAL) 0 % (0-6); BASOPHILS % (MANUAL) 0 % (0-2); EOSINOPHILS % (MANUAL) 4 % (0-7); LYMPHOCYTES % (MANUAL) 25 % (20-46); MONOCYTES % (MANUAL) 6 % (0-11)
[2020-02-17 12:30] VITALS: BP_SYST 150
--- NOTE | 2020-02-17 12:30 | NUR ---
Patient given written and verbal discharge instructions and verbalizes understanding. ER MD discussed with patient the results and treatment provided. Patient in stable condition. ID arm band removed. NO RX given. Patient educated on pain management and to follow up with PMD. Pain Scale 0. Opportunity for questions provided and answered. Medication side effect fact sheet provided.
== END 2020-02-17 12:30 | disposition home or self-care (01) ==
LOC: SED 11:04
DX: R79.89 Other specified abnormal findings of blood chemistry (principal); I11.0 Hypertensive heart disease with heart failure; I50.9 Heart failure, unspecified; K21.9 Gastro-esophageal reflux disease without esophagitis; I48.91 Unspecified atrial fibrillation; Z88.8 Allergy status to other drugs, medicaments and biological substances; Z79.899 Other long term (current) drug therapy; Z79.82 Long term (current) use of aspirin
CPT/HCPCS: 36415; 80053; 84484; 85007; 85027; 99283; 99284

== ENCOUNTER 2022-01-11 17:04 | Inpatient (IN) | payer OTHER, MEDICAID, SELFPAY ==
[~2022-01-11] VITALS: Ht 188 cm; Wt 153.3 kg
[~2022-01-11 17:04] MED LIST changes: -ACET-2165 PO; +ACET325T PO; -ASPI-1153 PO; +ASPI-1393 PO; +DIGO125T PO; -DIGO125T79 PO; -HYDR-1189 PO; +HYDR-3919 PO; +POTA-197 PO; -POTA20TA83 PO
[2022-01-11 17:15] VITALS: BP_SYST 129
[2022-01-11] MEDS ORDERED: ASPIRIN 81 MG TAB.CHEW PO ONE (18:30)
[2022-01-11 18:58] LABS: CALCIUM 9.3 mg/dL (8.4-11.0); CHLORIDE 103 mmol/L (98-107); CREATININE 1.63 mg/dL (0.55-1.30); GLUCOSE 86 mg/dL (70-99); SODIUM SERUM 134 mmol/L (136-145); UREA NITROGEN, BLOOD 21 mg/dL (8-21)
[2022-01-11 19:07] LABS: ALANINE AMINOTRANSFERASE 28 U/L (12-78); ALBUMIN 2.7 g/dL (3.4-4.8); ASPARTATE AMINOTRANSFERASE 56 U/L (10-37); TOTAL BILIRUBIN 1.4 mg/dL (0.0-1.0)
[2022-01-11 19:09] LABS: GFR AFRICAN AMERICAN 54 mL/min (>90)
[2022-01-11 19:10] LABS: BASOPHILS # (AUTO) 0.1 K/uL (0.0-0.2); BASOPHILS % (AUTO) 0.6 % (0.0-2.0); EOSINOPHILS # (AUTO) 0.2 K/uL (0.0-0.4); HEMATOCRIT 37.3 % (36-54); HEMOGLOBIN 12.1 g/dL (14.0-18.0); LYMPHOCYTES % (AUTO) 17.3 % (20.5-51.5); MEAN CORPUSCULAR HEMOGLOBIN 29 pg (27-31); MEAN CORPUSCULAR HGB CONC 33 % (32-36); MEAN CORPUSCULAR VOLUME 89 fL (79.0-98.0); MONOCYTES # (AUTO) 0.7 K/uL (0.0-1.0); MONOCYTES % (AUTO) 6.5 % (1.7-9.3); NEUTROPHILS # (AUTO) 8.4 K/uL (1.8-7.7); NEUTROPHILS % (AUTO) 73.6 % (40.0-70.0); PLATELET COUNT (AUTO) 248 K/uL (130-430); RED BLOOD CELL COUNT(AUTO) 4.18 MIL/uL (4.2-6.2); RED CELL DISTRIBUTION WIDTH 16.5 % (9.0-15.0); WHITE BLOOD COUNT (AUTO) 11.4 K/uL (4.8-10.8)
[2022-01-11 19:11] LABS: ANION GAP 3 (5-15); POTASSIUM 5.3 mmol/L (3.5-5.1)
[2022-01-11] MEDS ORDERED: PIPERACILLIN/TAZO 3.375 GM in NS 50 ML IV ONE (20:00)
[2022-01-11] MEDS ORDERED: FUROSEMIDE 100 MG/10 ML VIAL IVP ONE (20:00)
[2022-01-11] MEDS ORDERED: AZITHROMYCIN 500 MG in NS 250 ML IV ONE (20:00)
[2022-01-11 20:19] LABS: BILIRUBIN,URINE NEGATIVE (NEGATIVE); CLARITY/URINE CLEAR (CLEAR); COLOR,URINE YELLOW (YELLOW); GLUCOSE,URINE NEGATIVE (NEGATIVE); KETONES,URINE NEGATIVE (NEGATIVE); LEUKOCYTE ESTERASE ,URINE NEGATIVE (NEGATIVE); NITRITE, URINE NEGATIVE (NEGATIVE); PROTEIN URINE 3+ (NEGATIVE)
[2022-01-11 20:26] LABS: BLOOD, URINE TRACE (NEGATIVE)
[2022-01-11] MEDS ORDERED: ZOLPIDEM TARTRATE 5 MG TABLET PO PRN (20:30)
[2022-01-11] MEDS ORDERED: MUPIROCIN 2% TOPICAL OINTMENT 22 GM NS PRN (20:30)
[2022-01-11] MEDS ORDERED: ACETAMINOPHEN 325 MG TABLET PO PRN (20:30)
[2022-01-11] MEDS ORDERED: ONDANSETRON HCL 4 MG/2 ML VIAL IVP PRN (20:30)
[2022-01-11] MEDS ORDERED: IPRATROPIUM/ALBUTEROL SULFATE 3 ML AMPUL.NEB (DUONEB) INH PRN (20:30)
[2022-01-11] MEDS ORDERED: MAGNESIUM SULFATE 50 ML IV PRN (20:30)
[2022-01-11] MEDS ORDERED: MORPHINE 2 MG/ML INJ. SYRINGE IVP PRN ×2 (20:30)
[2022-01-11] MEDS ORDERED: POTASSIUM CHLORIDE 20 MEQ TAB.PRT.SR PO PRN (20:30)
[2022-01-11] MEDS ORDERED: DOCUSATE SODIUM 100 MG CAPSULE PO PRN (20:30)
[2022-01-11] MEDS ORDERED: LORazepam 2 MG/ML VIAL IVP PRN (20:30)
[2022-01-11 20:32] LABS: BACTERIA,URINE RARE /HPF (None Seen); RBC,URINE 0-3 /HPF (0-3); WBC,URINE 0-3 /HPF (0-3)
[2022-01-11] MEDS: PIPERACILLIN/TAZO 3.375 GM in NS 50 ML IV SCH (21:00)
[2022-01-11] MEDS ORDERED: PIPERACILLIN/TAZO 3.375 GM in NS 50 ML IV SCH (21:00)
[2022-01-11] MEDS ORDERED: PIPERACILLIN/TAZOBACTAM 3.375 GM/VIAL (ZOSYN) IV ONE (21:10)
[2022-01-11] MEDS ORDERED: AZITHROMYCIN 500 MG/VIAL (ZITHROMAX) IV ONE (21:10)
[2022-01-11] MEDS ORDERED: FUROSEMIDE 40 MG/4 ML VIAL ONE (21:11)
[2022-01-11] MEDS: NACL 0.9% 1,000 ML IV SCH (21:53)
[2022-01-11] MEDS: DOCUSATE SODIUM 100 MG CAPSULE PO SCH (21:56)
[2022-01-11] MEDS: METOPROLOL TARTRATE 25 MG TABLET PO SCH (21:56)
[2022-01-11] MEDS: DILTIAZEM HCL 60 MG TABLET PO SCH (21:57)
[2022-01-11 22:50] VITALS: BP_SYST 158
[2022-01-12] VITALS (7 sets, daily range): BP systolic 129–163
[2022-01-12] MEDS ORDERED: PIPERACILLIN/TAZOBACTAM 3.375 GM/VIAL (ZOSYN) IV ONE (01:58)
[2022-01-12] MEDS: PIPERACILLIN/TAZO 3.375 GM in NS 50 ML IV SCH ×4 (02:14→21:31)
[2022-01-12 04:34] LABS: BASOPHILS # (AUTO) 0.1 K/uL (0.0-0.2); HEMATOCRIT 36.9 % (36-54); WHITE BLOOD COUNT (AUTO) 11.2 K/uL (4.8-10.8)
[2022-01-12 04:41] LABS: BASOPHILS % (AUTO) 0.6 % (0.0-2.0); EOSINOPHILS # (AUTO) 0.3 K/uL (0.0-0.4); EOSINOPHILS % (AUTO) 2.8 % (0.0-4.0); LYMPHOCYTES # (AUTO) 2.3 K/uL (1.0-5.5); LYMPHOCYTES % (AUTO) 20.4 % (20.5-51.5); MEAN CORPUSCULAR HEMOGLOBIN 29 pg (27-31); MEAN CORPUSCULAR HGB CONC 33 % (32-36); MEAN CORPUSCULAR VOLUME 89 fL (79.0-98.0); MONOCYTES # (AUTO) 0.6 K/uL (0.0-1.0); MONOCYTES % (AUTO) 5.5 % (1.7-9.3); NEUTROPHILS # (AUTO) 7.9 K/uL (1.8-7.7); NEUTROPHILS % (AUTO) 70.7 % (40.0-70.0); PLATELET COUNT (AUTO) 282 K/uL (130-430); RED BLOOD CELL COUNT(AUTO) 4.17 MIL/uL (4.2-6.2); RED CELL DISTRIBUTION WIDTH 16.4 % (9.0-15.0)
[2022-01-12 05:09] LABS: CALCIUM 9.5 mg/dL (8.4-11.0); CREATININE 1.71 mg/dL (0.55-1.30); POTASSIUM 4.4 mmol/L (3.5-5.1)
[2022-01-12] MEDS: DILTIAZEM HCL 60 MG TABLET PO SCH (05:35)
[2022-01-12] MEDS ORDERED: DIGOXIN 0.125 MG TABLET PO SCH (09:00)
[2022-01-12] MEDS: FUROSEMIDE 40 MG/4 ML VIAL IVP SCH (15:31)
[2022-01-12] MEDS: DOCUSATE SODIUM 100 MG CAPSULE PO SCH ×2 (15:32→21:34)
[2022-01-12] MEDS: ASPIRIN 81 MG TABLET(ECOTRIN) PO SCH (15:33)
[2022-01-12] MEDS: APIXABAN 2.5 MG TABLET PO SCH ×2 (15:35→21:33)
[2022-01-12] MEDS: ALLOPURINOL 300 MG TABLET (ZYLOPRIM) PO SCH (15:36)
[2022-01-12] MEDS: METOPROLOL TARTRATE 25 MG TABLET PO SCH ×2 (15:36→21:34)
[2022-01-12] MEDS ORDERED: INSULIN REGULAR, HUMAN 100 UNITS/ML, 10 ML VIAL (humuLIN R) SUBCUT PRN (21:15)
[2022-01-13 00:06] VITALS: BP_SYST 152
[2022-01-13] MEDS: PIPERACILLIN/TAZO 3.375 GM in NS 50 ML IV SCH ×4 (03:35→20:24)
[2022-01-13 07:00] VITALS: BP_SYST 154
[2022-01-13 07:47] LABS: BASOPHILS # (AUTO) 0.1 K/uL (0.0-0.2); BASOPHILS % (AUTO) 1.1 % (0.0-2.0); EOSINOPHILS # (AUTO) 0.3 K/uL (0.0-0.4); EOSINOPHILS % (AUTO) 3.6 % (0.0-4.0); HEMATOCRIT 35.4 % (36-54); HEMOGLOBIN 11.6 g/dL (14.0-18.0); LYMPHOCYTES # (AUTO) 2.3 K/uL (1.0-5.5); LYMPHOCYTES % (AUTO) 26.2 % (20.5-51.5); MEAN CORPUSCULAR HEMOGLOBIN 29 pg (27-31); MEAN CORPUSCULAR HGB CONC 33 % (32-36); MEAN CORPUSCULAR VOLUME 89 fL (79.0-98.0); MONOCYTES # (AUTO) 0.5 K/uL (0.0-1.0); MONOCYTES % (AUTO) 6.1 % (1.7-9.3); NEUTROPHILS # (AUTO) 5.6 K/uL (1.8-7.7); PLATELET COUNT (AUTO) 328 K/uL (130-430); RED BLOOD CELL COUNT(AUTO) 3.97 MIL/uL (4.2-6.2); RED CELL DISTRIBUTION WIDTH 16.8 % (9.0-15.0); WHITE BLOOD COUNT (AUTO) 8.9 K/uL (4.8-10.8)
[2022-01-13 07:48] LABS: CALCIUM 9.6 mg/dL (8.4-11.0); CREATININE 1.75 mg/dL (0.55-1.30); POTASSIUM 3.7 mmol/L (3.5-5.1)
[2022-01-13 08:00] VITALS: BP_SYST 158
[2022-01-13 08:03] LABS: ALBUMIN 2.8 g/dL (3.4-4.8); THYROID STIMULATING HORMONE 2.57 uIu/mL (0.36-3.74); TOTAL BILIRUBIN 1.8 mg/dL (0.0-1.0)
[2022-01-13] MEDS: APIXABAN 2.5 MG TABLET PO SCH ×2 (10:09→20:23)
[2022-01-13] MEDS: METOPROLOL TARTRATE 25 MG TABLET PO SCH ×2 (10:12→20:22)
[2022-01-13] MEDS: ALLOPURINOL 300 MG TABLET (ZYLOPRIM) PO SCH (10:13)
[2022-01-13] MEDS: FUROSEMIDE 40 MG/4 ML VIAL IVP SCH (10:14)
[2022-01-13] MEDS: ASPIRIN 81 MG TABLET(ECOTRIN) PO SCH (10:14)
[2022-01-13] MEDS: NACL 0.9% 1,000 ML IV SCH ×2 (10:16→20:30)
[2022-01-13 12:00] VITALS: BP_SYST 140
[2022-01-13 20:00] VITALS: BP_SYST 137
[2022-01-13] MEDS: DOCUSATE SODIUM 100 MG CAPSULE PO SCH (20:24)
[2022-01-14 00:40] VITALS: BP_SYST 157
[2022-01-14] MEDS: PIPERACILLIN/TAZO 3.375 GM in NS 50 ML IV SCH ×3 (02:35→15:27)
[2022-01-14 07:15] LABS: BASOPHILS # (AUTO) 0.1 K/uL (0.0-0.2); BASOPHILS % (AUTO) 0.8 % (0.0-2.0); EOSINOPHILS # (AUTO) 0.4 K/uL (0.0-0.4); EOSINOPHILS % (AUTO) 4.1 % (0.0-4.0); HEMATOCRIT 35.4 % (36-54); HEMOGLOBIN 11.6 g/dL (14.0-18.0); LYMPHOCYTES # (AUTO) 2.5 K/uL (1.0-5.5); LYMPHOCYTES % (AUTO) 27.2 % (20.5-51.5); MEAN CORPUSCULAR HEMOGLOBIN 29 pg (27-31); MEAN CORPUSCULAR HGB CONC 33 % (32-36); MEAN CORPUSCULAR VOLUME 88 fL (79.0-98.0); MONOCYTES # (AUTO) 0.6 K/uL (0.0-1.0); MONOCYTES % (AUTO) 6.2 % (1.7-9.3); NEUTROPHILS # (AUTO) 5.7 K/uL (1.8-7.7); NEUTROPHILS % (AUTO) 61.7 % (40.0-70.0); PLATELET COUNT (AUTO) 254 K/uL (130-430); RED BLOOD CELL COUNT(AUTO) 4.03 MIL/uL (4.2-6.2); RED CELL DISTRIBUTION WIDTH 16.5 % (9.0-15.0); WHITE BLOOD COUNT (AUTO) 9.2 K/uL (4.8-10.8)
[2022-01-14 08:01] LABS: CALCIUM 9.5 mg/dL (8.4-11.0); CREATININE 1.66 mg/dL (0.55-1.30); POTASSIUM 3.8 mmol/L (3.5-5.1)
[2022-01-14 08:17] VITALS: BP_SYST 143
[2022-01-14] MEDS: APIXABAN 2.5 MG TABLET PO SCH (08:41)
[2022-01-14] MEDS: ALLOPURINOL 300 MG TABLET (ZYLOPRIM) PO SCH (08:42)
[2022-01-14] MEDS: ASPIRIN 81 MG TABLET(ECOTRIN) PO SCH (08:42)
[2022-01-14] MEDS: DOCUSATE SODIUM 100 MG CAPSULE PO SCH ×2 (08:42→09:00)
[2022-01-14] MEDS: METOPROLOL TARTRATE 25 MG TABLET PO SCH (08:42)
[2022-01-14] MEDS: FUROSEMIDE 40 MG/4 ML VIAL IVP SCH (08:44)
[2022-01-14 12:31] VITALS: BP_SYST 153
[2022-01-14 15:52] VITALS: BP_SYST 138
[2022-01-14 16:21] VITALS: BP_SYST 146
== END 2022-01-14 17:20 | DRG 193 ==
LOC: SED 17:04 → STU 20:00
PROVIDERS: ADMIT General Practice; ATTEND General Practice
DX: J18.9 Pneumonia, unspecified organism (principal); N17.0 Acute kidney failure with tubular necrosis; J96.20 Acute and chronic respiratory failure, unspecified whether with hypoxia or hypercapnia; I50.43 Acute on chronic combined systolic (congestive) and diastolic (congestive) heart failure; I13.0 Hypertensive heart and chronic kidney disease with heart failure and stage 1 through stage 4 chronic kidney disease, or unspecified chronic kidney disease; E44.0 Moderate protein-calorie malnutrition; I48.20 Chronic atrial fibrillation, unspecified; D63.8 Anemia in other chronic diseases classified elsewhere; I25.10 Atherosclerotic heart disease of native coronary artery without angina pectoris; Z20.822 Contact with and (suspected) exposure to COVID-19; Z66 Do not resuscitate; E87.5 Hyperkalemia; J98.4 Other disorders of lung; R53.81 Other malaise; E66.01 Morbid (severe) obesity due to excess calories; N18.9 Chronic kidney disease, unspecified; E11.22 Type 2 diabetes mellitus with diabetic chronic kidney disease; Z87.891 Personal history of nicotine dependence; Z88.8 Allergy status to other drugs, medicaments and biological substances; Z79.899 Other long term (current) drug therapy; Z83.3 Family history of diabetes mellitus; Z79.4 Long term (current) use of insulin; Z74.01 Bed confinement status
CPT/HCPCS: 36415; 71045; 76770; 80048; 80053; 80061; 80162; 81000; 82962; 83605; 83735; 83880; 84443; 84484; 85025; 87040; 87081; 93005; 93306; 94760; 96365; 96368; 96375; 97161-GP; 99285; G0378; J0456; J1815; J1940; J2270; J2543

== ENCOUNTER 2023-02-10 20:52 | Inpatient (IN) | payer OTHER, MEDICAID ==
--- NOTE | 2020-02-15 09:18 | NUR ---
CM reached out to Dr Wilkinson for discharge plan disposition.
[~2023-02-10] VITALS: Ht 188 cm; Wt 150.6 kg
[~2023-02-10 20:52] MED LIST changes: -NITR-85 PO; -Vancomycin Per Pharmacy XX
[2023-02-10 20:58] VITALS: BP_SYST 140
--- NOTE | 2023-02-10 21:09 | NUR ---
Patient to ER bed 01 to gown for evaluation. Side rails up. Report given to FELICITY KWOK.
[2023-02-10] MEDS ORDERED: PIPERACILLIN/TAZO 3.375 GM in D5W 50 ML IV ONE (21:15)
[2023-02-10] MEDS ORDERED: NS 1000 ML IV.SOLN IV ONE (21:15)
[2023-02-10] MEDS ORDERED: VANCOMYCIN HCL 1,000 MG in D5W 250 ML IV ONE (21:15)
[2023-02-10 22:15] LABS: BILIRUBIN,URINE NEGATIVE (NEGATIVE); BLOOD, URINE NEGATIVE (NEGATIVE); CLARITY/URINE CLEAR (CLEAR); COLOR,URINE YELLOW (YELLOW); GLUCOSE,URINE NEGATIVE (NEGATIVE); KETONES,URINE NEGATIVE (NEGATIVE); LEUKOCYTE ESTERASE ,URINE NEGATIVE (NEGATIVE); NITRITE, URINE NEGATIVE (NEGATIVE); PROTEIN URINE 2+ (NEGATIVE); UROBILINOGEN,URINE 0.2 (0.2-1.0)
--- NOTE | 2023-02-10 22:20 | NUR ---
S/B DR ESQUIVEL AT BEDSIDE AND EXAMINING HIM PLACED IN RM1 CONNECTED TO BEDSIDE MONITOR
[2023-02-10 22:22] LABS: BACTERIA,URINE None Seen /HPF (None Seen); MUCUS,URINE None Seen /LPF (None Seen); RBC,URINE NONE SEEN /HPF (0-3); WBC,URINE 0-3 /HPF (0-3)
[2023-02-10] MEDS ORDERED: VANCOMYCIN HCL 1000 MG/VIAL IV ONE (22:22)
[2023-02-10] MEDS ORDERED: PIPERACILLIN/TAZOBACTAM 3.375 GM/VIAL (ZOSYN) IV ONE (22:23)
--- NOTE | 2023-02-10 22:30 | NUR ---
IV START PLACED AT LT AC AND RT AC IVF RUNNING AND IV ABX GIVEN.
[2023-02-10 22:58] LABS: ALANINE AMINOTRANSFERASE 10 U/L (12-78); ALBUMIN 2.6 g/dL (3.4-4.8); ANION GAP 2 (5-15); ASPARTATE AMINOTRANSFERASE 22 U/L (10-37); CALCIUM 8.1 mg/dL (8.4-11.0); CHLORIDE 101 mmol/L (98-107); CREATININE 1.97 mg/dL (0.55-1.30); GFR AFRICAN AMERICAN 44 mL/min (>90); GLUCOSE 112 mg/dL (70-99); TOTAL BILIRUBIN 0.7 mg/dL (0.0-1.0); UREA NITROGEN, BLOOD 34 mg/dL (8-21)
[2023-02-10 23:02] LABS: BASOPHILS # (AUTO) 0.1 K/uL (0.0-0.2); BASOPHILS % (AUTO) 0.4 % (0.0-2.0); EOSINOPHILS # (AUTO) 0.3 K/uL (0.0-0.4); EOSINOPHILS % (AUTO) 1.7 % (0.0-4.0); HEMOGLOBIN 9.8 g/dL (14.0-18.0); LYMPHOCYTES # (AUTO) 2.7 K/uL (1.0-5.5); LYMPHOCYTES % (AUTO) 17.9 % (20.5-51.5); MEAN CORPUSCULAR HEMOGLOBIN 31 pg (27-31); MEAN CORPUSCULAR HGB CONC 33 % (32-36); MEAN CORPUSCULAR VOLUME 94 fL (79.0-98.0); MONOCYTES # (AUTO) 1.1 K/uL (0.0-1.0); MONOCYTES % (AUTO) 7.4 % (1.7-9.3); NEUTROPHILS % (AUTO) 72.6 % (40.0-70.0); PLATELET COUNT (AUTO) 218 K/uL (130-430); RED BLOOD CELL COUNT(AUTO) 3.19 MIL/uL (4.2-6.2); RED CELL DISTRIBUTION WIDTH 17.3 % (9.0-15.0); WHITE BLOOD COUNT (AUTO) 15.2 K/uL (4.8-10.8)
[2023-02-10] MEDS ORDERED: ACETAMINOPHEN 325 MG TABLET PO ONE (23:15)
[2023-02-10] MEDS ORDERED: ALBUTEROL SULFATE 0.083% 2.5 MG/3 ML VIAL.NEB INH ONE (23:15)
[2023-02-10] MEDS ORDERED: IPRATROPIUM BROM 0.5 MG/2.5 ML VIAL.NEB (ATROVENT) INH ONE (23:15)
[2023-02-10] MEDS ORDERED: LevALBUTEROL HCL 1.25 MG/0.5 ML *CONC.* VIAL.NEB (XOPENEX CONC.) INH ONE (23:15)
[2023-02-10] MEDS ORDERED: 0.45% NACL 1,000 ML IV ONE (23:15)
[2023-02-10] MEDS ORDERED: DIGO250T PO (23:17)
--- NOTE | 2023-02-10 23:20 | NUR ---
SPOKE TO DR ALEXANDER WITH ADMIT ORDERS TO TELE SEE CPOE FOR ORDERS
[2023-02-10] MEDS ORDERED: CYCL10TA24 PO (23:21)
[2023-02-10] MEDS ORDERED: BISA10SU61 RC (23:22)
[2023-02-10] MEDS ORDERED: HYDR-4037 PO (23:24)
[2023-02-10] MEDS ORDERED: HYDR-3927 PO (23:27)
[2023-02-10] MEDS ORDERED: POTA10TA PO (23:28)
[2023-02-10] MEDS ORDERED: HYDR-3917 PO (23:31)
[2023-02-10] MEDS ORDERED: [UNRECOGNIZED DRUG - CODE] EACH EYE (23:32)
--- NOTE | 2023-02-10 23:33 | NUR ---
Admit bed requested Patient will be admitted to care of . Admitted to TELEMETRY unit. Diagnosis PNEUMONIA,HYPOXIA Inpatient (Yes or No) YES Observation (Yes or No) YES Orientation concerns or request close to nursing station (Yes or No)YES Covid Status N On vent or bipap N Isolation requirements N Needs a sitter N From Home (Yes or if No enter name of facility) [facility] Requires Dialysis (Yes or No) N Med Rec Completed (Yes of No) Y
[2023-02-10] MEDS ORDERED: VANCOMYCIN HCL 1,500 MG in NS 500 ML IV NR (23:45)
[2023-02-11] MEDS ORDERED: LevALBUTEROL HCL 1.25 MG/0.5 ML *CONC.* VIAL.NEB (XOPENEX CONC.) INH ONE
--- NOTE | 2023-02-11 00:20 | NUR ---
Patient will be admitted to care of [facility]. Admitted to TELEMETRY Will go to room 102-A. Belongings list completed. Complete and up to date summary report printed. SBAR report to be given at bedside with opportunity for questions.
[2023-02-11 00:27] VITALS: BP_SYST 159
--- NOTE | 2023-02-11 00:30 | NUR ---
Received pt from ER accompanied by Nurses via [place].he is alert and oriented to person,hard of both hearing with hearing aids.he has a wet cough expectorating thick brown sputum.immediate vitals done spo2-93-96% on 6L/NC.pt oriented to hospital room, suctioning equipment,call light,toileting .RT called ,Nebulized pt and obtained blood for ABGs.injection Lasix has been ordered and administered
[2023-02-11 01:45] VITALS: BP_SYST 159
[2023-02-11] MEDS ORDERED: LevALBUTEROL HCL 1.25 MG/0.5 ML *CONC.* VIAL.NEB (XOPENEX CONC.) INH SCH (02:15)
[2023-02-11] MEDS ORDERED: FUROSEMIDE 40 MG/4 ML VIAL IVP ONE ×2 (02:15)
[2023-02-11] MEDS ORDERED: IPRATROPIUM/ALBUTEROL SULFATE 3 ML AMPUL.NEB (DUONEB) INH PRN (02:30)
--- NOTE | 2023-02-11 02:41 | NUR ---
CONSULTATION PAGED/CALLED Reason for Consultation: PNA Person Who was Notified: MICHELINE Consulting Physician: ENOC Director Business Travel Specialty: PULMO Ordering Physician: CATHERINE
[2023-02-11] MEDS ORDERED: PIPERACILLIN/TAZOBACTAM 2.25 GM in NS 50 ML IV ONE (04:00)
--- NOTE | 2023-02-11 04:00 | NUR ---
Antibiotics administered as prescribed.pt awake .not distress Spo2 97%
[2023-02-11] MEDS ORDERED: PIPERACILLIN/TAZOBACTAM 2.25 GM VIAL IV ONE (04:18)
[2023-02-11] MEDS: IPRATROPIUM/ALBUTEROL SULFATE 3 ML AMPUL.NEB (DUONEB) INH SCH ×6 (04:51→23:00)
[2023-02-11 05:32] LABS: BASOPHILS % (AUTO) 0.3 % (0.0-2.0); EOSINOPHILS # (AUTO) 0.1 K/uL (0.0-0.4); EOSINOPHILS % (AUTO) 0.6 % (0.0-4.0); HEMATOCRIT 30.5 % (36-54); HEMOGLOBIN 9.8 g/dL (14.0-18.0); LYMPHOCYTES # (AUTO) 1.7 K/uL (1.0-5.5); LYMPHOCYTES % (AUTO) 11.8 % (20.5-51.5); MEAN CORPUSCULAR HEMOGLOBIN 31 pg (27-31); MEAN CORPUSCULAR HGB CONC 32 % (32-36); MEAN CORPUSCULAR VOLUME 95 fL (79.0-98.0); MONOCYTES # (AUTO) 0.9 K/uL (0.0-1.0); MONOCYTES % (AUTO) 6.5 % (1.7-9.3); NEUTROPHILS # (AUTO) 11.6 K/uL (1.8-7.7); NEUTROPHILS % (AUTO) 80.8 % (40.0-70.0); PLATELET COUNT (AUTO) 208 K/uL (130-430); RED BLOOD CELL COUNT(AUTO) 3.22 MIL/uL (4.2-6.2); RED CELL DISTRIBUTION WIDTH 17.1 % (9.0-15.0)
[2023-02-11 05:51] LABS: ALBUMIN 2.7 g/dL (3.4-4.8); CALCIUM 8.3 mg/dL (8.4-11.0); CREATININE 2.02 mg/dL (0.55-1.30); TOTAL BILIRUBIN 0.7 mg/dL (0.0-1.0)
[2023-02-11] MEDS ORDERED: INSULIN REGULAR, HUMAN 100 UNITS/ML, 3 ML VIAL SUBCUT SCH (07:00)
--- NOTE | 2023-02-11 07:46 | NUR ---
MORNING ROUNDS: PATIENT ON BREATHING TREATMENT DURING ROUNDS. CALL LIGHT WITH IN REACH. BED LOCKED AT LOWEST POSITION. IV SALINE LOCK. NO DISTRESS.
[2023-02-11 08:00] VITALS: BP_SYST 150
[2023-02-11 08:00] LABS: WHITE BLOOD COUNT (AUTO) 14.3 K/uL (4.8-10.8)
--- NOTE | 2023-02-11 09:27 | NUR ---
ABG RESULTS REPORTED TO DR STUBBS @ 1010. NO CHANGES AT THIS TIME. TRY TO KEEP OFFERING BIPAP.
[2023-02-11] MEDS ORDERED: MILK OF MAGNESIA 30 ML UDC PO PRN (10:15)
[2023-02-11] MEDS ORDERED: HYDROcodone/ACETAMIN 5-325 MG TAB (NORCO/ VICODIN) PO PRN (10:15)
[2023-02-11] MEDS ORDERED: NALOXONE HCL 0.4 MG/ML AMP (NARCAN) IVP PRN (10:15)
[2023-02-11] MEDS ORDERED: CYCLOBENZAPRINE HCL 10 MG TABLET (FLEXERIL) PO PRN (10:15)
[2023-02-11] MEDS ORDERED: ACETAMINOPHEN 325 MG TABLET PO PRN (10:15)
[2023-02-11] MEDS ORDERED: BISACODYL 10 MG/SUPPOSITORY RC PRN (10:15)
[2023-02-11] MEDS ORDERED: ASPIRIN 81 MG TABLET(ECOTRIN) PO ONE (10:30)
[2023-02-11] MEDS ORDERED: DIGOXIN 0.25 MG TABLET PO ONE (10:45)
[2023-02-11] MEDS ORDERED: ALLOPURINOL 300 MG TABLET (ZYLOPRIM) PO ONE (10:45)
[2023-02-11 11:45] VITALS: BP_SYST 135
[2023-02-11] MEDS: PIPERACILLIN/TAZO 3.375/DEX-IS 50 ML IV SCH ×2 (12:11→18:04)
[2023-02-11] MEDS: VANCOMYCIN HCL 1,750 MG in NS 500 ML IV SCH (12:13)
[2023-02-11] MEDS: 0.45% NACL 1,000 ML IV SCH ×2 (12:20→20:45)
[2023-02-11] MEDS: hydrALAZINE HCL 10 MG TABLET PO SCH ×2 (14:32→21:36)
[2023-02-11] MEDS: DILTIAZEM HCL 60 MG TABLET PO SCH ×2 (14:32→21:36)
[2023-02-11 18:14] VITALS: BP_SYST 133
--- NOTE | 2023-02-11 18:45 | NUR ---
END OF SHIFT: PATIENT RESTING.O2 3L/NC,GOOD SATURATION. IV ANTIBIOTICS ON GOING. CALL LIGHT WITH IN REACH. BED LOCKED AT LOWEST POSITION. BED ALARM ON. STABLE.
--- NOTE | 2023-02-11 19:00 | NUR ---
EVENING ROUNDS: PATIENT SLEEPING DURING ROUNDS. ON O2 3L/NC,GOOD SATURATION. CALL LIGHT ANUSHA IN RAACH. BED LOCKED AT LOWEST POSITION. NOT IN ANY DISTRESS. Addendum: 02/11/23 at 1950 by Ashley Hickman RN DUPLICATE.
--- NOTE | 2023-02-11 19:30 | NUR ---
OPENING NOTES Patient resting in bed - no s/s pain or distress noted. Respirations even and unlabored - head of bed elevated 3l NC. IV site patent no s/s redness infection or infiltration. Bed locked and in lowest position. Call light within reach bed alarm on.
[2023-02-11 20:00] VITALS: BP_SYST 137
[2023-02-11] MEDS ORDERED: NON-FORMULARY MEDICATION (Apixaban (Eliquis) 5 MG) PO SCH (21:00)
[2023-02-11] MEDS ORDERED: BIMATOPROST 0.03% EACH EYE SCH (21:00)
[2023-02-11] MEDS: METHYLPREDNISOLONE SOD SUCC 40 MG/ML VIAL IVP SCH (21:34)
[2023-02-11] MEDS: LATANOPROST 2.5 ML DROPS (XALATAN) EACH EYE SCH (21:35)
[2023-02-11] MEDS: APIXABAN 2.5 MG TABLET PO SCH (21:36)
[2023-02-11] MEDS: ASCORBIC ACID 500 MG TABLET PO SCH (21:37)
[2023-02-11] MEDS: METOPROLOL TARTRATE 25 MG TABLET PO SCH (21:37)
--- NOTE | 2023-02-11 22:52 | NUR ---
iv infiltrated stopping fluids
--- NOTE | 2023-02-12 00:05 | NUR ---
new iv inserted L arm 22G
[2023-02-12 00:08] VITALS: BP_SYST 148
[2023-02-12] MEDS: PIPERACILLIN/TAZO 3.375/DEX-IS 50 ML IV SCH ×4 (00:15→18:40)
[2023-02-12] MEDS: IPRATROPIUM/ALBUTEROL SULFATE 3 ML AMPUL.NEB (DUONEB) INH SCH ×6 (03:00→23:19)
[2023-02-12] MEDS: 0.45% NACL 1,000 ML IV SCH ×2 (04:22→17:46)
[2023-02-12] MEDS: METHYLPREDNISOLONE SOD SUCC 40 MG/ML VIAL IVP SCH ×3 (06:09→21:31)
[2023-02-12] MEDS: DILTIAZEM HCL 60 MG TABLET PO SCH ×3 (06:17→21:31)
[2023-02-12 07:29] LABS: ALBUMIN 2.4 g/dL (3.4-4.8); CALCIUM 8.5 mg/dL (8.4-11.0); CREATININE 1.84 mg/dL (0.55-1.30); DIGOXIN 1.8 ng/mL (0.80-2.00); TOTAL BILIRUBIN 0.8 mg/dL (0.0-1.0)
[2023-02-12 08:00] VITALS: BP_SYST 145
--- NOTE | 2023-02-12 08:12 | NUR ---
OPENING NOTES: RECEIVED BEDSIDE SBAR FROM PM SHIFT NURSE, NO S/S OF ANY DISTRESS, NON LABOR BREATHING, IV INTACT, BED AT LOW AND LOCKED POSITION CALL LIGHT IN REACH, ALL SAFETY CHECKS DONE AND WILL DO THOUGHT THE DAY, PATIENT RESTING IN BED WITH EYES CLOSED, WILL MONITOR PATIENT THOUGHT THE DAY.
[2023-02-12] MEDS ORDERED: SODIUM POLYSTYRENE SULFONATE 15 GM/60 ML UDBTL PO ONE (09:00)
--- NOTE | 2023-02-12 09:00 | NUR ---
K: 5.7 TODAY NEW ORDERS FROM DR CATHERINE ADAMS 30MG PO X1
[2023-02-12] MEDS: ALLOPURINOL 300 MG TABLET (ZYLOPRIM) PO SCH (09:01)
[2023-02-12] MEDS: hydrALAZINE HCL 10 MG TABLET PO SCH ×3 (09:01→21:35)
[2023-02-12] MEDS: ASPIRIN 81 MG TABLET(ECOTRIN) PO SCH (09:01)
[2023-02-12] MEDS: FERROUS SULFATE 325 MG TABLET.DR PO SCH (09:01)
[2023-02-12] MEDS: METOPROLOL TARTRATE 25 MG TABLET PO SCH ×2 (09:02→21:32)
[2023-02-12] MEDS: ASCORBIC ACID 500 MG TABLET PO SCH ×2 (09:02→21:31)
[2023-02-12] MEDS: DIGOXIN 0.25 MG TABLET PO SCH (09:02)
[2023-02-12] MEDS: MULTIVITAMINS TAB 1 TABLET PO SCH (09:03)
[2023-02-12] MEDS: APIXABAN 2.5 MG TABLET PO SCH ×2 (09:09→21:36)
[2023-02-12 11:30] VITALS: BP_SYST 133
[2023-02-12] MEDS: VANCOMYCIN HCL 1,750 MG in NS 500 ML IV SCH (11:42)
[2023-02-12 17:22] VITALS: BP_SYST 133
--- NOTE | 2023-02-12 18:22 | NUR ---
CLOSING NOTES: PATIENT REMAINS STABLE THOUGHT THE DAY, NON S/S OF ANY DISTRESS, NON LABOR BREATHING, CALL LIGHT IN REACH, BED AT LOW AND LOCKED POSITION, ALL SAFETY CHECKS DONE, WILL GIVE PM SHIFT NURSE BEDSIDE SBAR.
--- NOTE | 2023-02-12 19:30 | NUR ---
OPENING NOTES Patient resting in bed - no s/s pain or distress noted. Respirations even and unlabored - head of bed elevated. IV site patent no s/s redness infection or infiltration. Bed locked and in lowest position. Call light within reach bed alarm on.
[2023-02-12 20:00] VITALS: BP_SYST 137
[2023-02-12] MEDS: LATANOPROST 2.5 ML DROPS (XALATAN) EACH EYE SCH (21:30)
[2023-02-13] VITALS: BP_SYST 128
[2023-02-13] MEDS: PIPERACILLIN/TAZO 3.375/DEX-IS 50 ML IV SCH ×4 (00:09→18:47)
[2023-02-13] MEDS: 0.45% NACL 1,000 ML IV SCH ×2 (02:45→16:16)
[2023-02-13] MEDS: IPRATROPIUM/ALBUTEROL SULFATE 3 ML AMPUL.NEB (DUONEB) INH SCH ×6 (03:00→23:00)
[2023-02-13 05:51] LABS: BASOPHILS % (AUTO) 0.1 % (0.0-2.0); HEMATOCRIT 28.9 % (36-54); HEMOGLOBIN 9.4 g/dL (14.0-18.0); LYMPHOCYTES # (AUTO) 0.6 K/uL (1.0-5.5); LYMPHOCYTES % (AUTO) 4.3 % (20.5-51.5); MEAN CORPUSCULAR HEMOGLOBIN 30 pg (27-31); MEAN CORPUSCULAR HGB CONC 33 % (32-36); MEAN CORPUSCULAR VOLUME 93 fL (79.0-98.0); MONOCYTES # (AUTO) 0.3 K/uL (0.0-1.0); NEUTROPHILS # (AUTO) 12.1 K/uL (1.8-7.7); NEUTROPHILS % (AUTO) 93.6 % (40.0-70.0); PLATELET COUNT (AUTO) 219 K/uL (130-430); RED BLOOD CELL COUNT(AUTO) 3.11 MIL/uL (4.2-6.2); RED CELL DISTRIBUTION WIDTH 17.5 % (9.0-15.0); WHITE BLOOD COUNT (AUTO) 12.9 K/uL (4.8-10.8)
[2023-02-13 06:18] LABS: ALBUMIN 2.3 g/dL (3.4-4.8); CALCIUM 8.3 mg/dL (8.4-11.0); CREATININE 1.98 mg/dL (0.55-1.30); TOTAL BILIRUBIN 0.8 mg/dL (0.0-1.0)
[2023-02-13] MEDS: METHYLPREDNISOLONE SOD SUCC 40 MG/ML VIAL IVP SCH ×2 (06:23→18:47)
[2023-02-13] MEDS: DILTIAZEM HCL 60 MG TABLET PO SCH ×3 (06:27→21:24)
[2023-02-13 09:00] VITALS: BP_SYST 124
[2023-02-13] MEDS: FERROUS SULFATE 325 MG TABLET.DR PO SCH (09:27)
[2023-02-13] MEDS: ASPIRIN 81 MG TABLET(ECOTRIN) PO SCH (09:27)
[2023-02-13] MEDS: ASCORBIC ACID 500 MG TABLET PO SCH ×2 (09:27→21:24)
[2023-02-13] MEDS: MULTIVITAMINS TAB 1 TABLET PO SCH (09:27)
[2023-02-13] MEDS: DIGOXIN 0.25 MG TABLET PO SCH (09:28)
[2023-02-13] MEDS: METOPROLOL TARTRATE 25 MG TABLET PO SCH ×2 (09:29→21:25)
[2023-02-13] MEDS: APIXABAN 2.5 MG TABLET PO SCH ×2 (09:37→21:29)
[2023-02-13] MEDS: ALLOPURINOL 300 MG TABLET (ZYLOPRIM) PO SCH (09:58)
[2023-02-13] MEDS: hydrALAZINE HCL 10 MG TABLET PO SCH ×3 (09:59→21:24)
[2023-02-13 11:32] VITALS: BP_SYST 131
[2023-02-13] MEDS: INSULIN REGULAR, HUMAN 100 UNITS/ML, 3 ML VIAL (humuLIN R) SUBCUT PRN ×2 (11:38→21:28)
[2023-02-13] MEDS: VANCOMYCIN HCL 1,750 MG in NS 500 ML IV SCH (12:40)
--- NOTE | 2023-02-13 15:03 | NUR ---
PHYSICAL THERAPY CO-SIGN The Physical Therapy Progress Notes documented by Office Copy Selector have been reviewed. Reviewed/Co-Signed by: Ck Nance Documentation Done by:RICHARD NULL Addendum: 02/13/23 at 1504 by Ck Nance PT Amended: Links added.
[2023-02-13 15:50] VITALS: BP_SYST 139
[2023-02-13 20:00] VITALS: BP_SYST 142
--- NOTE | 2023-02-13 20:00 | NUR ---
Opening notes Pt AAOx4, no s/s distress noted. O2 sat 96% on 2L NC. Pt c/o loose BM. IVF infusing at ordered rate R. FA 22G clear and patent. Call light/items within reach. Safety maintained. To monitor.
[2023-02-13] MEDS: LATANOPROST 2.5 ML DROPS (XALATAN) EACH EYE SCH (21:37)
[2023-02-14] VITALS (8 sets, daily range): BP systolic 132–149
[2023-02-14] MEDS: PIPERACILLIN/TAZO 3.375/DEX-IS 50 ML IV SCH ×4 (00:16→17:43)
--- NOTE | 2023-02-14 00:16 | NUR ---
Rounds/IV antibiotic Pt asleep, no s/s distress. IV antibiotic administered as scheduled R. FA 22G clear and patent. Call light within reach.
[2023-02-14] MEDS: IPRATROPIUM/ALBUTEROL SULFATE 3 ML AMPUL.NEB (DUONEB) INH SCH ×6 (03:13→23:06)
[2023-02-14] MEDS: 0.45% NACL 1,000 ML IV SCH (04:17)
[2023-02-14] MEDS: METHYLPREDNISOLONE SOD SUCC 40 MG/ML VIAL IVP SCH ×2 (05:56→17:43)
--- NOTE | 2023-02-14 06:04 | NUR ---
Closing notes Pt asleep, easily awakens, no s/s distress noted. O2 NC on. IVF infusing at ordered rate R. FA 22G clear and patent. BS checked 133. Call light/items within reach. Safety maintained. To endorse to AM nurse.
[2023-02-14] MEDS: DILTIAZEM HCL 60 MG TABLET PO SCH ×3 (06:05→22:16)
[2023-02-14 08:11] LABS: CALCIUM 8.5 mg/dL (8.4-11.0); CREATININE 1.96 mg/dL (0.55-1.30)
[2023-02-14 08:22] LABS: HEMOGLOBIN 9.9 g/dL (14.0-18.0); MEAN CORPUSCULAR HEMOGLOBIN 30 pg (27-31); MEAN CORPUSCULAR HGB CONC 33 % (32-36); MEAN CORPUSCULAR VOLUME 92 fL (79.0-98.0); PLATELET COUNT (AUTO) 228 K/uL (130-430); RED BLOOD CELL COUNT(AUTO) 3.27 MIL/uL (4.2-6.2); RED CELL DISTRIBUTION WIDTH 17.7 % (9.0-15.0); WHITE BLOOD COUNT (AUTO) 11.7 K/uL (4.8-10.8)
[2023-02-14] MEDS: ASCORBIC ACID 500 MG TABLET PO SCH ×2 (09:11→20:42)
[2023-02-14] MEDS: ALLOPURINOL 300 MG TABLET (ZYLOPRIM) PO SCH (09:11)
[2023-02-14] MEDS: hydrALAZINE HCL 10 MG TABLET PO SCH ×3 (09:11→20:42)
[2023-02-14] MEDS: ASPIRIN 81 MG TABLET(ECOTRIN) PO SCH (09:11)
[2023-02-14] MEDS: FERROUS SULFATE 325 MG TABLET.DR PO SCH (09:11)
[2023-02-14] MEDS: MULTIVITAMINS TAB 1 TABLET PO SCH (09:12)
[2023-02-14] MEDS: METOPROLOL TARTRATE 25 MG TABLET PO SCH ×2 (09:12→20:42)
[2023-02-14] MEDS: DIGOXIN 0.25 MG TABLET PO SCH (09:15)
[2023-02-14] MEDS: APIXABAN 2.5 MG TABLET PO SCH ×2 (09:19→20:45)
--- NOTE | 2023-02-14 11:09 | NUR ---
New orders: spoke with Dr. Wilkinson and was notified that can discharge but will need a midline placement first.
--- NOTE | 2023-02-14 12:05 | NUR ---
patient accepted back at [facility] room 100A. Ambulance bariatric gurney service arranged with [facility]. [phone]. ETA picking crew supervisor time is 4pm today. Barriers to discharge identified: Dr Wilkinson put in an order for a midline this morning. Patient RN states that they have to call for an outside IV nurse to place a midline and they dont know when they will get here to place it. Also patient weight necessitates him to have a bariatric gurney transport.
[2023-02-14] MEDS: VANCOMYCIN HCL 1,750 MG in NS 500 ML IV SCH (12:40)
[2023-02-14 13:13] LABS: CORRECTED WHITE BLOOD COUNT 10.5 K/uL (4.5-11.0)
[2023-02-14 13:14] LABS: BASOPHILS % (MANUAL) 0 % (0-2); EOSINOPHILS % (MANUAL) 0 % (0-7); LYMPHOCYTES % (MANUAL) 11 % (20-46); MONOCYTES % (MANUAL) 3 % (0-11)
--- NOTE | 2023-02-14 14:28 | NUR ---
PHYSICAL THERAPY CO-SIGN The Physical Therapy Progress Notes documented by Cloth Sander have been reviewed. Reviewed/Co-Signed by: Ck Nance Documentation Done by:RICHARD NULL Addendum: 02/14/23 at 1428 by Ck Nance PT Amended: Links added.
--- NOTE | 2023-02-14 14:35 | NUR ---
Received notification by Charge nurse of pt discharge today. Spoke with pt's son Pedrito Lovelace and notified him that pt will be transferred to [facility] at around 12nn. Notified the patient as well. Pt worked with PT this morning and was able to ambulate several steps inside pt room. [facility] transport arrived at around 1230. Called [facility] and gave report to Ricardo BLEVINS. Discharge instruction teaching provided to patient who verbalized understanding. Turned over all documents to transport personnel and handed all patient belongings. IV access was not dc'd per request of Ricardo BLEVINS. Also, told Ricardo BLEVINS that IV Levaquin still need to be administered daily from today until 02/16/23. Addendum: 02/14/23 at 1446 by [facility] RegistryFELICITY RN Notified by Hand Chain Maker (not Charge Nurse as previously stated).
--- NOTE | 2023-02-14 15:46 | NUR ---
Transportation back to SNF with [facility] placed on will call. RN to call to activate when patient is ready for discharge. [phone]
--- NOTE | 2023-02-14 17:06 | NUR ---
ACCU CHECK Patients blood sugar was 154, requires 2 units. Patient stated he was ok with not getting because his blood sugar is not that bad and "usually adjust its'self" Patient educated and will continue with plan of care. Reported to FELICITY Wooten.
--- NOTE | 2023-02-14 19:50 | NUR ---
PICC line nurse placed Midline KAMLESH double lumen.
[2023-02-14] MEDS: LATANOPROST 2.5 ML DROPS (XALATAN) EACH EYE SCH (20:41)
--- NOTE | 2023-02-14 20:50 | NUR ---
Called [facility], spoke to Thierry, ETA is 2330.
--- NOTE | 2023-02-14 21:01 | NUR ---
Gave report to nurse Francoise at [facility]. Pt to go back to Room 100A. Accepting Dr. Wilkinson. Ambulance ETA 11:30pm.
--- NOTE | 2023-02-14 23:56 | NUR ---
D/C Patient Patient given medication reconciliation form and D/C instructions. Exit Care provided. Patient verbalized understanding. MD discussed with patient the results and treatment provided. Patient in stable condition, ID band removed. IV catheter removed, intact and dressing applied, no active bleeding. KAMLESH midline double lumen placed today. Patient educated on pain management. All belongings sent with patient.
== END 2023-02-14 23:56 | DRG 871 ==
LOC: SED 20:52 → STU 23:28
PROVIDERS: ADMIT Family Medicine; ATTEND Internal Medicine
PROC: 05HY33Z Insertion of Infusion Device into Upper Vein, Percutaneous Approach (ICD-10-PCS; principal; 2023-02-14)
PROC: B54MZZA Ultrasonography of Right Upper Extremity Veins, Guidance (ICD-10-PCS; 2023-02-14)
DX: A41.9 Sepsis, unspecified organism (principal); J18.9 Pneumonia, unspecified organism; J96.01 Acute respiratory failure with hypoxia; J96.02 Acute respiratory failure with hypercapnia; N17.9 Acute kidney failure, unspecified; I13.0 Hypertensive heart and chronic kidney disease with heart failure and stage 1 through stage 4 chronic kidney disease, or unspecified chronic kidney disease; J44.0 Chronic obstructive pulmonary disease with (acute) lower respiratory infection; Z68.41 Body mass index [BMI] 40.0-44.9, adult; Z66 Do not resuscitate; Z20.822 Contact with and (suspected) exposure to COVID-19; E86.0 Dehydration; I48.0 Paroxysmal atrial fibrillation; E11.22 Type 2 diabetes mellitus with diabetic chronic kidney disease; I50.9 Heart failure, unspecified; D64.9 Anemia, unspecified; E66.9 Obesity, unspecified; E87.5 Hyperkalemia; J98.01 Acute bronchospasm; J44.9 Chronic obstructive pulmonary disease, unspecified; N18.9 Chronic kidney disease, unspecified; Y95 Nosocomial condition; Z87.891 Personal history of nicotine dependence
CPT/HCPCS: 36415; 36600; 71045; 71250-TC; 76376; 80048; 80053; 80162; 80202; 81000; 82803; 83605; 84484; 85007; 85025; 85027; 87040; 87081; 87086; 93005; 93306; 94640; 94660; 94760; 96365; 97110-GP; 97163-GP; 97530-GP; 99285; G0378; J1030; J1940; J2543; J3370; J7030; J7040; J7613

== ENCOUNTER 2024-03-26 10:14 | Outpatient (CLI) | payer OTHER, MEDICAID ==
[~2024-03-26 10:14] MED LIST changes: +BISA10SU61 RC; +CYCL10TA24 PO; -DIGO125T PO; +DIGO250T PO; -DOCU-144 PO; -FAMO-132 PO; +HYDR-2923 PO; +HYDR-3917 PO; -HYDR-3919 PO; +HYDR-3927 PO; -HYDR-4274 PO; -L.RH1CAP PO; -LACT10SO6 PO; -POTA-197 PO; +POTA-217 PO; +[UNRECOGNIZED DRUG - CODE] EACH EYE
== END 2024-03-26 21:10 | disposition home or self-care (01) ==
LOC: SRD 10:14
PROVIDERS: ATTEND Internal Medicine
DX: S32.018A Other fracture of first lumbar vertebra, initial encounter for closed fracture (principal); M47.817 Spondylosis without myelopathy or radiculopathy, lumbosacral region; M48.05 Spinal stenosis, thoracolumbar region; X58.XXXA Exposure to other specified factors, initial encounter; Y93.89 Activity, other specified; Y92.89 Other specified places as the place of occurrence of the external cause; Y99.8 Other external cause status
CPT/HCPCS: 72110

== ENCOUNTER 2024-05-11 11:26 | Inpatient (IN) | payer OTHER, MEDICAID ==
[~2024-05-11] VITALS: Ht 188 cm; Wt 142.9 kg
[2024-05-11] VITALS (9 sets, daily range): BP systolic 138–177; PULSE 74–87; RESP 16–20; TEMP 97.7–98.6; O2SAT 93–98
[2024-05-11] MEDS ORDERED: ACET-2634 PO (11:57)
[2024-05-11] MEDS ORDERED: PRO40 PO (11:57)
[2024-05-11] MEDS ORDERED: DABI150C PO (11:57)
[2024-05-11] MEDS ORDERED: XALEYE OP (11:57)
[2024-05-11] MEDS ORDERED: HYDR50TA44 PO (11:58)
[2024-05-11 12:12] LABS: HEMATOCRIT 26.1 % (36-54); HEMOGLOBIN 8.6 g/dL (14.0-18.0); MEAN CORPUSCULAR HEMOGLOBIN 31 pg (27-31); MEAN CORPUSCULAR HGB CONC 33 % (32-36); MEAN CORPUSCULAR VOLUME 92 fL (79.0-98.0); PLATELET COUNT (AUTO) 240 K/uL (130-430); RED BLOOD CELL COUNT(AUTO) 2.82 MIL/uL (4.2-6.2); RED CELL DISTRIBUTION WIDTH 17.7 % (9.0-15.0); WHITE BLOOD COUNT (AUTO) 10.1 K/uL (4.8-10.8)
[2024-05-11 12:20] LABS: ABG O2 SAT% ESTIMATE 92.5 % (94.0-100.0); BLOOD GAS BASE EXCESS 2.2 mmol/L (-3.0-3.0); BLOOD GAS HCO3 29.5 mmol/L (21.0-27.0); BLOOD GAS PO2 72.5 mmHg (75.0-100.0)
[2024-05-11 12:26] LABS: BLOOD GAS PH 7.293 (7.350-7.450)
[2024-05-11 12:27] LABS: ALLEN'S TEST POSITIVE (P); BLOOD GAS PCO2 62.4 mmHg (32.0-45.0)
[2024-05-11 12:40] LABS: ALBUMIN 2.6 g/dL (3.4-4.8); ANION GAP 4 (5-15); ASPARTATE AMINOTRANSFERASE 21 U/L (10-37); BILIRUBIN,DIRECT 0.5 mg/dL (0.0-0.3); CALCIUM 8.3 mg/dL (8.4-11.0); CARBON DIOXIDE 30 mmol/L (23-29); CHLORIDE 99 mmol/L (98-107); CREATININE 2.99 mg/dL (0.55-1.30); GLUCOSE 115 mg/dL (74-106); PHOSPHORUS 4.6 mg/dL (2.7-4.5); POTASSIUM 5.3 mmol/L (3.5-5.1); SODIUM SERUM 133 mmol/L (136-145); THYROID STIMULATING HORMONE 2.22 uIu/mL (0.34-4.82); TOTAL BILIRUBIN 1.3 mg/dL (0.0-1.0); UREA NITROGEN, BLOOD 46 mg/dL (8-21)
[2024-05-11 12:50] LABS: CORRECTED WHITE BLOOD COUNT 8.3 K/uL (4.5-11.0); LYMPHOCYTES % (MANUAL) 11 % (20-46); MONOCYTES % (MANUAL) 8 % (0-11)
[2024-05-11 12:51] LABS: BASOPHILS % (MANUAL) 0 % (0-2); EOSINOPHILS % (MANUAL) 0 % (0-7); PLATELET ESTIMATE ADEQUATE (ADEQUATE); POLYCHROMASIA 1+
[2024-05-11 12:52] LABS: ANISOCYTOSIS 1+; OVALOCYTES FEW; TARGET CELLS MODERATE; TEAR DROP CELLS RARE
[2024-05-11 12:53] LABS: GFR AFRICAN AMERICAN 27 mL/min (>90); GFR NON AFRICAN-AMERICAN 22 mL/min (>90)
[2024-05-11 12:54] LABS: ALANINE AMINOTRANSFERASE 7 U/L (12-78); DIGOXIN 3.2 ng/mL (0.80-2.00)
[2024-05-11] MEDS: NACL 0.9% 1,000 ML IV SCH (14:45)
[2024-05-11] MEDS ORDERED: ACETAMINOPHEN 325 MG TABLET PO PRN (15:00)
[2024-05-11] MEDS ORDERED: MILK OF MAGNESIA 30 ML UDC PO PRN (15:00)
[2024-05-11] MEDS ORDERED: BISACODYL 10 MG/SUPPOSITORY RC PRN (15:00)
[2024-05-11] MEDS ORDERED: NALOXONE HCL 0.4 MG/ML AMP (NARCAN) IVP PRN (15:00)
[2024-05-11] MEDS ORDERED: IPRATROPIUM/ALBUTEROL SULFATE 3 ML AMPUL.NEB (DUONEB) INH PRN (15:00)
[2024-05-11 15:38] LABS: BILIRUBIN,URINE NEGATIVE (NEGATIVE); BLOOD, URINE NEGATIVE (NEGATIVE); CLARITY/URINE CLEAR (CLEAR); COLOR,URINE YELLOW (YELLOW); GLUCOSE,URINE NEGATIVE (NEGATIVE); KETONES,URINE NEGATIVE (NEGATIVE); LEUKOCYTE ESTERASE ,URINE NEGATIVE (NEGATIVE); NITRITE, URINE NEGATIVE (NEGATIVE); PROTEIN URINE 2+ (NEGATIVE); UROBILINOGEN,URINE 0.2 (0.2-1.0)
[2024-05-11 15:49] LABS: BACTERIA,URINE None Seen /HPF (None Seen); MUCUS,URINE None Seen /LPF (None Seen); RBC,URINE NONE SEEN /HPF (0-3); WBC,URINE NONE SEEN /HPF (0-3)
[2024-05-11] MEDS: levalbuterol HCL 0.63 MG/3 ML VIAL.NEB INH ONE (17:06)
[2024-05-11] MEDS: levalbuterol HCL 0.63 MG/3 ML VIAL.NEB INH SCH (20:43)
[2024-05-11] MEDS: PIPERACILLIN/TAZO 3.375 GM in D5W 50 ML IV SCH (21:50)
[2024-05-11] MEDS: FUROSEMIDE 40 MG TABLET PO SCH (21:51)
[2024-05-11] MEDS: LATANOPROST 2.5 ML DROPS (XALATAN) OP SCH (21:52)
[2024-05-11] MEDS: METOPROLOL TARTRATE 25 MG TABLET PO SCH (21:53)
[2024-05-11] MEDS: ASCORBIC ACID 500 MG TABLET PO SCH (21:53)
[2024-05-11] MEDS: DABIGATRAN ETEXILATE MESYLATE 75 MG CAPSULE PO SCH (21:56)
[2024-05-12] VITALS (12 sets, daily range): BP systolic 128–168; PULSE 58–64; RESP 17–22; TEMP 97.4–99.5; O2SAT 92–100
[2024-05-12 06:45] LABS: BASOPHILS % (AUTO) 0.5 % (0.0-2.0); EOSINOPHILS # (AUTO) 0.3 K/uL (0.0-0.4); HEMOGLOBIN 8.7 g/dL (14.0-18.0); LYMPHOCYTES # (AUTO) 1.3 K/uL (1.0-5.5); LYMPHOCYTES % (AUTO) 13.1 % (20.5-51.5); MEAN CORPUSCULAR HEMOGLOBIN 31 pg (27-31); MEAN CORPUSCULAR HGB CONC 33 % (32-36); MEAN CORPUSCULAR VOLUME 93 fL (79.0-98.0); MONOCYTES # (AUTO) 0.9 K/uL (0.0-1.0); MONOCYTES % (AUTO) 8.8 % (1.7-9.3); NEUTROPHILS # (AUTO) 7.3 K/uL (1.8-7.7); PLATELET COUNT (AUTO) 250 K/uL (130-430); RED BLOOD CELL COUNT(AUTO) 2.79 MIL/uL (4.2-6.2); RED CELL DISTRIBUTION WIDTH 17.6 % (9.0-15.0); WHITE BLOOD COUNT (AUTO) 9.8 K/uL (4.8-10.8)
[2024-05-12 06:56] LABS: ALBUMIN 2.7 g/dL (3.4-4.8); CALCIUM 8.6 mg/dL (8.4-11.0); CREATININE 2.7 mg/dL (0.55-1.30); DIGOXIN 2.2 ng/mL (0.80-2.00); POTASSIUM 5.1 mmol/L (3.5-5.1); TOTAL BILIRUBIN 1.2 mg/dL (0.0-1.0); TOTAL PROTEIN, SERUM 7.1 g/dL (6.4-8.3)
[2024-05-12 07:17] LABS: NEUTROPHILS % (AUTO) 74.6 % (40.0-70.0)
[2024-05-12 09:00] LABS: ABG O2 SAT% ESTIMATE 91.5 % (94.0-100.0); BLOOD GAS BASE EXCESS 1.5 mmol/L (-3.0-3.0); BLOOD GAS HCO3 28.5 mmol/L (21.0-27.0); BLOOD GAS PH 7.305 (7.350-7.450); BLOOD GAS PO2 68.2 mmHg (75.0-100.0)
[2024-05-12 09:04] LABS: ALLEN'S TEST POSITIVE (P); BLOOD GAS PCO2 58.6 mmHg (32.0-45.0)
[2024-05-12] MEDS: FUROSEMIDE 40 MG/4 ML VIAL IVP SCH (09:51)
[2024-05-12] MEDS: PANTOPRAZOLE SODIUM 40 MG TAB PO SCH (09:52)
[2024-05-12] MEDS ORDERED: hydrALAZINE HCL 10 MG TABLET PO SCH (12:00)
[2024-05-12] MEDS: hydrALAZINE HCL 10 MG TABLET PO SCH (12:34)
[2024-05-12] MEDS: HYDROcodone/ACETAMIN 10-325 MG TAB PO PRN (20:48)
[2024-05-13] VITALS (10 sets, daily range): BP systolic 131–146; PULSE 60–76; RESP 17–20; TEMP 97.9–99; O2SAT 95–98
[2024-05-13 02:52] LABS: BILIRUBIN,URINE NEGATIVE (NEGATIVE); BLOOD, URINE NEGATIVE (NEGATIVE); CLARITY/URINE CLEAR (CLEAR); COLOR,URINE YELLOW (YELLOW); GLUCOSE,URINE NEGATIVE (NEGATIVE); KETONES,URINE NEGATIVE (NEGATIVE); LEUKOCYTE ESTERASE ,URINE NEGATIVE (NEGATIVE); NITRITE, URINE NEGATIVE (NEGATIVE); PROTEIN URINE 2+ (NEGATIVE); UROBILINOGEN,URINE 0.2 (0.2-1.0)
[2024-05-13 03:38] LABS: BACTERIA,URINE None Seen /HPF (None Seen); RBC,URINE 0-3 /HPF (0-3); WBC,URINE 0-3 /HPF (0-3)
[2024-05-13] MEDS: FUROSEMIDE 40 MG/4 ML VIAL IVP SCH (09:26)
[2024-05-13 10:04] LABS: BASOPHILS # (AUTO) 0.1 K/uL (0.0-0.2); BASOPHILS % (AUTO) 1.1 % (0.0-2.0); EOSINOPHILS # (AUTO) 0.4 K/uL (0.0-0.4); EOSINOPHILS % (AUTO) 4.7 % (0.0-4.0); HEMOGLOBIN 8.9 g/dL (14.0-18.0); LYMPHOCYTES # (AUTO) 1.3 K/uL (1.0-5.5); LYMPHOCYTES % (AUTO) 14.1 % (20.5-51.5); MEAN CORPUSCULAR HEMOGLOBIN 30 pg (27-31); MEAN CORPUSCULAR HGB CONC 33 % (32-36); MEAN CORPUSCULAR VOLUME 93 fL (79.0-98.0); MONOCYTES # (AUTO) 0.9 K/uL (0.0-1.0); NEUTROPHILS # (AUTO) 6.6 K/uL (1.8-7.7); PLATELET COUNT (AUTO) 257 K/uL (130-430); RED BLOOD CELL COUNT(AUTO) 2.92 MIL/uL (4.2-6.2); RED CELL DISTRIBUTION WIDTH 17.6 % (9.0-15.0); WHITE BLOOD COUNT (AUTO) 9.5 K/uL (4.8-10.8)
[2024-05-13 10:09] LABS: NEUTROPHILS % (AUTO) 70.1 % (40.0-70.0)
[2024-05-13 10:19] LABS: INR 2.8 (0.80-1.20); PROTHROMBIN TIME 27.3 SECS (9.5-12.5)
[2024-05-13 10:26] LABS: TOTAL IRON BIND. CAPACITY 117 ug/dL (250-450)
[2024-05-13 10:29] LABS: CALCIUM 8.6 mg/dL (8.4-11.0); POTASSIUM 4.5 mmol/L (3.5-5.1)
[2024-05-13 10:30] LABS: ALBUMIN 2.6 g/dL (3.4-4.8); CREATININE 2.57 mg/dL (0.55-1.30); DIGOXIN 1.9 ng/mL (0.80-2.00); TOTAL BILIRUBIN 1.2 mg/dL (0.0-1.0)
[2024-05-13 10:43] LABS: TOTAL PROTEIN, SERUM 7.2 g/dL (6.4-8.3)
[2024-05-14] VITALS (13 sets, daily range): BP systolic 134–145; PULSE 66–80; RESP 18–20; TEMP 98–98.3; O2SAT 95–100
[2024-05-14 05:07] LABS: BASOPHILS # (AUTO) 0.1 K/uL (0.0-0.2); BASOPHILS % (AUTO) 0.9 % (0.0-2.0); EOSINOPHILS # (AUTO) 0.6 K/uL (0.0-0.4); HEMATOCRIT 26.3 % (36-54); HEMOGLOBIN 8.8 g/dL (14.0-18.0); LYMPHOCYTES # (AUTO) 1.6 K/uL (1.0-5.5); LYMPHOCYTES % (AUTO) 14.2 % (20.5-51.5); MEAN CORPUSCULAR HEMOGLOBIN 31 pg (27-31); MEAN CORPUSCULAR HGB CONC 33 % (32-36); MEAN CORPUSCULAR VOLUME 92 fL (79.0-98.0); MONOCYTES % (AUTO) 8.7 % (1.7-9.3); NEUTROPHILS # (AUTO) 7.8 K/uL (1.8-7.7); NEUTROPHILS % (AUTO) 71.2 % (40.0-70.0); PLATELET COUNT (AUTO) 258 K/uL (130-430); RED BLOOD CELL COUNT(AUTO) 2.85 MIL/uL (4.2-6.2); RED CELL DISTRIBUTION WIDTH 18.1 % (9.0-15.0)
[2024-05-14 05:16] LABS: ALBUMIN 2.6 g/dL (3.4-4.8); CALCIUM 8.6 mg/dL (8.4-11.0); CREATININE 2.42 mg/dL (0.55-1.30); POTASSIUM 4.4 mmol/L (3.5-5.1); TOTAL BILIRUBIN 1.2 mg/dL (0.0-1.0); TOTAL PROTEIN, SERUM 6.8 g/dL (6.4-8.3)
[2024-05-14 09:21] LABS: PROTHROMBIN TIME 20.2 SECS (9.5-12.5)
[2024-05-15] VITALS (9 sets, daily range): BP systolic 127–138; PULSE 61–68; RESP 17–20; TEMP 97.6–98.7; O2SAT 95–100
[2024-05-15 05:45] LABS: INR 1.8 (0.80-1.20); PROTHROMBIN TIME 17.8 SECS (9.5-12.5)
[2024-05-15 05:51] LABS: BASOPHILS # (AUTO) 0.1 K/uL (0.0-0.2); EOSINOPHILS # (AUTO) 0.5 K/uL (0.0-0.4); EOSINOPHILS % (AUTO) 4.8 % (0.0-4.0); HEMOGLOBIN 8.8 g/dL (14.0-18.0); LYMPHOCYTES # (AUTO) 1.8 K/uL (1.0-5.5); LYMPHOCYTES % (AUTO) 17.6 % (20.5-51.5); MEAN CORPUSCULAR HEMOGLOBIN 30 pg (27-31); MEAN CORPUSCULAR HGB CONC 32 % (32-36); MEAN CORPUSCULAR VOLUME 93 fL (79.0-98.0); MONOCYTES # (AUTO) 0.8 K/uL (0.0-1.0); MONOCYTES % (AUTO) 7.8 % (1.7-9.3); NEUTROPHILS # (AUTO) 7.1 K/uL (1.8-7.7); NEUTROPHILS % (AUTO) 68.8 % (40.0-70.0); PLATELET COUNT (AUTO) 272 K/uL (130-430); RED BLOOD CELL COUNT(AUTO) 2.91 MIL/uL (4.2-6.2); RED CELL DISTRIBUTION WIDTH 17.5 % (9.0-15.0); WHITE BLOOD COUNT (AUTO) 10.3 K/uL (4.8-10.8)
[2024-05-15 06:00] LABS: CALCIUM 8.7 mg/dL (8.4-11.0); CREATININE 2.21 mg/dL (0.55-1.30); POTASSIUM 4.2 mmol/L (3.5-5.1)
== END 2024-05-15 15:30 | DRG 291 ==
LOC: SED 11:26 → STU 13:47
PROVIDERS: ADMIT Internal Medicine; ATTEND Internal Medicine
DX: I13.0 Hypertensive heart and chronic kidney disease with heart failure and stage 1 through stage 4 chronic kidney disease, or unspecified chronic kidney disease (principal); I50.33 Acute on chronic diastolic (congestive) heart failure; J18.9 Pneumonia, unspecified organism; J96.01 Acute respiratory failure with hypoxia; J96.02 Acute respiratory failure with hypercapnia; I50.32 Chronic diastolic (congestive) heart failure; I48.20 Chronic atrial fibrillation, unspecified; J44.0 Chronic obstructive pulmonary disease with (acute) lower respiratory infection; N17.9 Acute kidney failure, unspecified; Z68.41 Body mass index [BMI] 40.0-44.9, adult; E66.01 Morbid (severe) obesity due to excess calories; E11.40 Type 2 diabetes mellitus with diabetic neuropathy, unspecified; E11.22 Type 2 diabetes mellitus with diabetic chronic kidney disease; N18.30 Chronic kidney disease, stage 3 unspecified; D63.8 Anemia in other chronic diseases classified elsewhere; J84.10 Pulmonary fibrosis, unspecified; K21.9 Gastro-esophageal reflux disease without esophagitis; K74.60 Unspecified cirrhosis of liver; T46.0X5A Adverse effect of cardiac-stimulant glycosides and drugs of similar action, initial encounter; Y92.89 Other specified places as the place of occurrence of the external cause; Z79.01 Long term (current) use of anticoagulants; Z87.891 Personal history of nicotine dependence; Z83.3 Family history of diabetes mellitus; Z79.4 Long term (current) use of insulin; Z79.02 Long term (current) use of antithrombotics/antiplatelets; Z79.899 Other long term (current) drug therapy; Z79.82 Long term (current) use of aspirin; Z88.8 Allergy status to other drugs, medicaments and biological substances; N18.9 Chronic kidney disease, unspecified
CPT/HCPCS: 36415; 36600; 70450-TC; 71045; 76770; 80048; 80053; 80076; 80162; 81000; 81001; 81015; 82803; 82948; 83037; 83540; 83550; 83735; 83880; 84100; 84443; 84484; 85007; 85025; 85027; 85610; 87081; 93005; 93306; 94070; 94640; 94760; 99285; G0378; J1940; J1956; J2543; J7060; J7614